=== PATIENT | male | born 1945 | race Caucasian/White ===

== ENCOUNTER → 2017-06-23 | Outpatient (CLI) | payer OTHER ==
[~2017-06-23] MED LIST: ACET-1138 PO; ASPEC81 PO; CLB200 PO; FERR1TAB13 PO; HYDR25TA5 PO; OXYSR10 PO; RXC5 PO; TIMO0.2528 OPB; TRAV0.00 OPR
--- NOTE | 2017-06-23 13:37 | DIAGNOSTIC IMAGING REPORT ---
ART DOP LOWER EXT BILAT CLINICAL HISTORY: DIMINISHED PULSES LE BILATERAL COMPARISON STUDY: No previous studies for comparison. FINDINGS: Brachial arm systolic pressures are 133 mmHg on the right and 136 mmHg the left. Neither posterior tibial artery was compressible. The right dorsalis pedis artery was noncompressible. The left dorsalis pedis systolic pressure was 152 mmHg. This yields a left ankle-brachial index of 1.1 Bilaterally, there is triphasic flow in the common femoral superficial femoral popliteal anterior tibial posterior tibial and peroneal arteries. No high velocity jets were visualized. IMPRESSION: No evidence of lower extremity arterial stenosis. Electronically signed by: Tank Callaway M.D. 06/23/2017 1:36 PM Dictated Date/Time: 06/23/2017 1:34 PM
== END | disposition home or self-care (01) ==
LOC: C.ULTR 11:12
PROVIDERS: ATTEND Orthopaedic Surgery Sports Medicine
DX: R09.89 Other specified symptoms and signs involving the circulatory and respiratory systems (principal)

== ENCOUNTER 2018-08-10 09:01 | Inpatient (IN) ==
--- NOTE | 2018-08-01 10:02 | Anesthesiology Consultation ---
Date of Service August 01, 2018 Assessment & Plan (1) Encounter for pre-operative examination: - PCP= 07/18/18= "medically optimized for surgery at this time." Labs/CXR reviewed. - Patient goes by "Delon" Chart Review Chart Review: Acceptable Risk for Surgery and Patient seen in Pre Admission Testing Teaching & Discussion Pre-Anesthesia Teaching/Discussion Notes: Instructed NPO after midnight before surgery,except medications with 15 cc of water. Medication instructions provided according to the PAT guidelines. History Surgery Operation Date: 08/10/18 07:15 Proposed Procedures p Left Knee Poly Exchange - Warren Baltazar MD Height/Weight Height: 6 ft 1 in Weight: 95 kg Allergies Allergy/AdvReac Type Severity Reaction Status Date / Time No Known Allergies Allergy Unknown Verified 07/24/18 12:06 Medications Home Medications Medication Instructions Recorded Confirmed Last Taken aspirin [Aspir-81] 81 mg PO DAILY 07/24/18 07/24/18 07/24/18 ferrous sulfate [iron] 325 mg PO DAILY 07/24/18 07/24/18 Unknown naproxen sodium [Aleve] 1 tab PO UD PRN 07/24/18 07/24/18 Unknown timolol 1 drp OPHTHALMIC (EYE) DAILY 07/24/18 07/24/18 Unknown travoprost [Travatan Z] 1 drp OPHTHALMIC (EYE) DAILY 07/24/18 07/24/18 Unknown triamterene-hydrochlorothiazid 1 tab PO DAILY 08/01/18 08/01/18 Unknown Past Medical History Medical History Asthma NO INHALER/RECENT ISSUES Emphysema lung EMPHYSEMATOUS CHANGE PER CXR Glaucoma Spinal stenosis Past Family History Family History Other Family history of cancer in father Past Surgical History Surgical History History of back surgery LUMBAR History of total left knee replacement + SUBSEQUENT REVISIONS Past Anesthesia History No Hx of Anesthesia Complications and No Family Hx of Anesthesia Complications History of PONV No Motion Sickness Screening History of Motion Sickness: No Social History Smoking Status: Former smoker Do You Dip or Chew Tobacco: Yes (OFF & ON - NPO ADVISED) Smoking End Date: QUIT 1980 Hx Alcohol Use: No Hx Substance Use: No substance use type: does not use Exercise / Class Metabolic Activity II 4-5 Yardwork/Stairs/Walk up hill Review of Systems Patient denies chest pain, shortness of breath, dyspnea on exertion, cough, wheezing, palpitations. Physical Exam Vital Signs VITALS BP 156/78 P 60 TEMP 97.6 SP02 96%RA RESP 18 PHYSICAL Full neck and c-spine range of motion. Full TMJ range of motion. TMD 3 finger breaths Mallampati Score 2 Dentition: lower partial Lungs: clear throughout to auscultation Cardiac: regular rate and rhythm, no murmurs noted Spine: normal Carotid arteries: negative bruit Extremities: no edema Testing Electrocardiogram Date: 07/18/18 SB with first degree AVB at 56bpm. Possible LAE. Chest X-Ray Date: 07/18/18 Findings: + NAD Tortuous and ectatic thoracic aorta. Mild emphysematous change. Laboratory Results Blood Type O Positive 08/01/18 10:26 Antibody Screen NEGATIVE 08/01/18 10:26 PT 10.4 Seconds (9.0-12.0) 08/01/18 10:26 INR 1.0 (0.9-1.1) 08/01/18 10:26 APTT 28.2 Seconds (21.0-31.0) 08/01/18 10:26 Hemoglobin A1c 5.9 % (4.5-5.6) H 08/01/18 10:26 Urine Color Yellow 08/01/18 Unknown Urine Appearance Clear (Clear) 08/01/18 Unknown Urine pH 7.0 (4.5-7.5) 08/01/18 Unknown Ur Specific [place] 1.013 (1.000-1.030) 08/01/18 Unknown Urine Protein Negative (Negative) 08/01/18 Unknown Urine Glucose (UA) Negative (Negative) 08/01/18 Unknown Urine Ketones Negative (Negative) 08/01/18 Unknown Urine Nitrite Negative (Negative) 08/01/18 Unknown Ur Leukocyte Esterase Negative (Negative) 08/01/18 Unknown 07/18/18 WBC 7.43 H/H 15.7/45.9 PLATELETS 308 SODIUM 136 POTASSIUM 4.2 CHLORIDE 100 CO2 35 BUN 17 CREATININE 1.04 GLUCOSE 105
--- NOTE | 2018-08-01 10:24 | PAT Medication Instructions ---
Medication Instructions Date of Service August 01, 2018 Home Medications aspirin [Aspir-81] 81 mg PO DAILY ferrous sulfate [iron] 325 mg PO DAILY naproxen sodium [Aleve] 1 tab PO UD PRN timolol 1 drp OPHTHALMIC (EYE) DAILY travoprost [Travatan Z] 1 drp OPHTHALMIC (EYE) DAILY triamterene 25 mg PO QAM ASK your surgeon for instructions naproxen sodium [Aleve] 1 tab PO UD PRN DO NOT take the morning of surgery ferrous sulfate [iron] 325 mg PO DAILY triamterene 25 mg PO QAM Take morning of surgery With a small sip of water, OTHERWISE NOTHING TO EAT OR DRINK AFTER MIDNIGHT: aspirin [Aspir-81] 81 mg PO DAILY timolol 1 drp OPHTHALMIC (EYE) DAILY travoprost [Travatan Z] 1 drp OPHTHALMIC (EYE) DAILY Other Notes If you have any questions please call us at [phone] or [phone] or [phone] or [phone]
[2018-08-01 12:18] LABS: Appearance Urine Clear (Clear); Bilirubin Urine Negative (Negative); Blood Urine Negative (Negative); Color Urine Yellow; Glucose Urine UA Negative (Negative); Ketones Urine Negative (Negative); Leukocyte Esterase Urine Negative (Negative); Nitrite Urine Negative (Negative); Protein Urine Negative (Negative); Specific Gravity Urine 1.013 (1.000-1.030); Urobilinogen Urine Negative (Negative)
[2018-08-01 12:31] LABS: Partial Thromboplastin Time 28.2 Seconds (21.0-31.0); Prothrombin Time 10.4 Seconds (9.0-12.0)
[2018-08-01 12:41] LABS: Estimated Average Glucose 123 mg/dl; Hemoglobin A1C 5.9 % (4.5-5.6)
--- NOTE | 2018-08-09 18:50 | History and Physical Report ---
DATE OF ADMISSION: 08/10/2018 CHIEF COMPLAINT: Chronic left knee pain. HISTORY OF PRESENT ILLNESS: This is a 72-year-old male patient of Dr. Baltazar'reece complaining of chronic left knee pain and instability. The patient is status post a total knee arthroplasty in 2002. He sustained a polyethylene fracture and had a revision in June of 2018. Again, he had recurrent pain and instability recently. Again, he has been diagnosed with a poly fracture of the total knee replacement and after bracing and conservative treatment he again wishes to proceed with a left total knee arthroplasty, poly exchange. Preoperative testing indicated no presence of infection. PAST MEDICAL HISTORY: The patient is a healthy 72-year-old male with no heart problems, lung problems, diabetes or cancer history. SOCIAL HISTORY: Nonsmoker, nondrinker. PAST SURGICAL HISTORY: Left knee x2. FAMILY HISTORY: Noncontributory. REVIEW OF SYSTEMS: Chronic left knee pain and instability. Otherwise denies any shortness of breath, chest pain, nausea, vomiting or any other joint complaints. MEDICATIONS: Aspirin 81 mg daily, timolol eyedrops 0.25% to affected eye 1 drop daily, Aleve 220 mg as needed, Travatan Z 0.004% eyedrops to affected eye every day, Hydrochlorothiazide 25 mg daily. ALLERGIES: No known drug allergies. PHYSICAL EXAMINATION: GENERAL: Well-developed, well-nourished 72-year-old male in no acute distress. He is alert and oriented x3 and pleasant. HEENT: Normocephalic, atraumatic. Extraocular muscles are intact. Pupils equal and reactive to light. HEART: Regular rate and rhythm. No murmurs appreciated. LUNGS: Clear. ABDOMEN: Soft and nontender, bowel sounds present. EXTREMITIES: Left knee reveals a neutral alignment. 0-100 degrees of range of motion with pain, 4/5 strength with pain. He is unstable with varus and valgus stressing. NEUROLOGIC: Neurovascularly he is intact in his left lower extremity. He does have old incision scars noted. DIAGNOSES: Left knee total knee arthroplasty, recurrent poly fracture. Otherwise, a healthy 72-year-old male. PLAN: The patient was advised of his diagnosis. Indications, risks, benefits, postop course have all been reviewed. The patient wished to proceed with a left total knee replacement revision poly exchange. Necessary consent forms, preoperative testing clearances will be obtained.
[~2018-08-10 09:01] MED LIST changes: -ACET-1138 PO; +ACETAMINOPHEN 500 MG TAB PO SCH; -ASPEC81 PO; +BUPIVACAINE 0.5 % 5 MG/1 ML PF 10ML VIAL ONE; +CEFAZOLIN 2000MG 2,000 MG/15 ML SYR IV SCH; -CLB200 PO; +CeleBREX 200 MG CAP PO SCH; +FAMOTIDINE 20 MG TAB PO SCH; -FERR1TAB13 PO; +GABAPENTIN 300 MG PO SCH; -HYDR25TA5 PO; +LR 500ML BOLUS, THEN 15ML/HR IV SCH; +METOCLOPRAMIDE HCL 10 MG TABLET PO SCH; -OXYSR10 PO; +ROPIVACAINE 0.5% 5 MG/ML 30 ML VIAL ONE; +ROPIVACAINE 0.5% HCL/PF 150 MG, BUPIVACAINE 0.5% MPF 30 ML, EPINEPHrine 30MG/30ML (OR U... INFIL SCH; -RXC5 PO; -TIMO0.2528 OPB; +TRANEXAMIC ACID 1,000 MG **IV Intra-op IV SCH; +TRANEXAMIC ACID 1,000 MG **IV Pre-op IV SCH; -TRAV0.00 OPR; +VANCOMYCIN HCL 1,500 MG in SODIUM CHLORIDE 0.9% 500 ML IV SCH; +dexAMETHasone 4 MG TAB PO SCH
[2018-08-10] MEDS ORDERED: fentaNYL citrate 100 MCG/2 ML VIAL ONE ×2 (11:42→14:44)
[2018-08-10] MEDS ORDERED: MIDAZOLAM HCL 1 MG/ML 2ML VIAL ONE (11:42)
[2018-08-10] MEDS ORDERED: ORTHO JOINT ANESTHETIC ONE (12:27)
[2018-08-10] MEDS ORDERED: BACITRACIN INJ 50,000 UNIT VIAL ONE (12:28)
[2018-08-10] MEDS ORDERED: POVIDONE-IODINE OP SOLN 30 ML BTL ONE (12:28)
--- NOTE | 2018-08-10 12:30 | History & Physical Bridge Note ---
Date of Service August 10, 2018 History & Physical Bridge Note I have examined the patient, reviewed the History & Physical and in the interval since the performance of the History & Physical I have noted the following changes of clinical significance: no changes noted
[2018-08-10] MEDS ORDERED: ePHEDrine sulfate 50 MG/ML AMP IV PRN (12:39)
[2018-08-10] MEDS ORDERED: ONDANSETRON INJ 2 MG/ML 2 ML VIAL IV PRN ×2 (12:39→17:13)
[2018-08-10] MEDS ORDERED: fentaNYL citrate 100 MCG/2 ML VIAL IV PRN (12:39)
[2018-08-10] MEDS ORDERED: HYDROmorphone INJ 1 MG/ML SYRINGE IV PRN (12:39)
[2018-08-10] MEDS ORDERED: ATROPINE SULFATE 0.1 MG/ML 10ML SYR IV PRN (12:39)
[2018-08-10] MEDS ORDERED: PROPOFOL IV EMULSION 10 MG/ML 20 ML VIAL IV ONE (12:49)
[2018-08-10] MEDS ORDERED: ePHEDrine sulfate 50 MG/ML SYR ONE (14:11)
[2018-08-10] MEDS ORDERED: BACITRACIN INJ 50,000 UNIT VIAL IR ONE (14:22)
[2018-08-10] MEDS ORDERED: LIDOCAINE HCL 2% 2 ML VIAL/AMP(20MG/ML) INFIL ONE (14:45)
--- NOTE | 2018-08-10 15:12 | Post Operative Brief Note ---
Immediate Post Op Note v1 Date of Surgery August 10, 2018 Pre & Post Diagnosis Operation Date: 08/10/18 11:35 Pre-Op Diagnosis: Left Knee Polyethylene Fracture tibial component with instability left total knee replacement Post-Op Diagnosis: Left Knee Polyethylene fracture tibial component and Wear of Patella polyethylene component with superficial delamination and Hemarthrosis of the knee Procedure Operation Date: 08/10/18 11:35 Actual Procedures p Left Knee revision of tibial polyethylene component and revision patella co mponent left knee replacement with synovectomy and irrigation of hemarthrosis- Warren Baltazar MD Surgeon Warren Baltazar MD Human Resources Compensation Analyst Skinny PERLA Estimated Blood Loss 10 Findings Consistent with Post-Op Diagnosis Specimens Explanted polyethylene components Drains Hemovac Drain (10 fr dual) Anesthesia Type General Regional Complications none Disposition Accompanied Patient To Recovery: No Disposition: Recovery Room Overlapping Procedure I was immediately available: during the entire case.
--- NOTE | 2018-08-10 15:46 | XRay Report ---
XR knee LT 2V routine HISTORY: 72 years-old Male Surgical Post Op left knee total joint arthroplasty COMPARISON: Left knee radiographs 04/08/2016 TECHNIQUE: 2 views of the left knee FINDINGS: Left knee total joint arthroplasty and patellar resurfacing with satisfactory alignment. No acute fra cture or retained foreign body. Anterior midline skin bharathi are noted with expected postsurgical so ft tissue swelling and deep tissue air. Surgical drainage catheter noted. Peripheral arterial calcifi cations noted. IMPRESSION: Left knee total joint arthroplasty and patella resurfacing with satisfactory alignment. The above report was generated using voice recognition software. It may contain grammatical, syntax o r spelling errors. Electronically signed by: Carlos Knutson M.D. 08/10/2018 3:44 PM
--- NOTE | 2018-08-10 16:00 | Anesthesiology Progress Note ---
Date of Service August 10, 2018 Anesthesia Post Procedure Vital Signs Vital Signs: Temp Pulse Pulse Resp BP Pulse Ox 08/10/18 15:54 64 17 135/88 94 08/10/18 15:45 75 14 132/82 98 08/10/18 15:35 71 13 129/81 98 08/10/18 15:25 57 L 10 L 129/72 98 08/10/18 15:16 36.2 C L 60 10 L 119/76 96 08/10/18 09:39 36.9 C 52 L 20 168/97 H 96 Notes Mental Status: alert / awake / arousable and participated in evaluation Patient Amnestic to Procedure: Yes Nausea / Vomiting: adequately controlled Pain: adequately controlled Airway Patency, RR, SpO2: stable & adequate BP & HR: stable & adequate Hydration State: stable & adequate Anesthetic Complications: no major complications apparent and Pt Satisfied with anesthetic care Notes: Block is functioning well.
[2018-08-10] MEDS ORDERED: HYDROmorphone INJ 0.5 MG/0.5 ML SYR IV PRN (17:13)
[2018-08-10] MEDS ORDERED: OXYCODONE HCL IR 5 MG TAB (IMMEDIATE RELEASE) PO PRN (17:13)
[2018-08-10] MEDS ORDERED: SODIUM CHLORIDE 0.9% 1000ML 1,000 ML IV SCH (17:13)
[2018-08-10] MEDS ORDERED: TRAMADOL HCL 50 MG TABLET PO PRN (17:13)
[2018-08-10] MEDS ORDERED: METOCLOPRAMIDE HCL INJ 5 MG/ML 2 ML VIAL IV PRN (17:13)
[2018-08-10] MEDS ORDERED: MAGNESIUM HYDROXIDE SUSP 30 ML UDC PO PRN (17:13)
[2018-08-10] MEDS ORDERED: NALOXONE HCL 0.4 MG/1 ML VIAL/CARP IV PRN (17:13)
[2018-08-10] MEDS ORDERED: VANCOMYCIN CONSULT ACTIVE PRN (17:13)
[2018-08-10] MEDS ORDERED: BISACODYL 10 MG SUPP PR PRN (17:13)
--- NOTE | 2018-08-10 17:15 | Operative Report ---
Post Operative Report Pre & Post Diagnosis Operation Date: 08/10/18 11:35 Pre-Op Diagnosis: Left Knee Polyethylene Fracture tibial component with instability of the knee Post-Op Diagnosis: Same with polyethylene wear and delamination of patella component and hemarthrosis Procedure Operation Date: 08/10/18 11:35 Actual Procedures Left Knee revision of tibial polyethylene component, revision of patellar component, electrocautery synovectomy.- Warren Baltazar MD Surgeon Warren Balatzar MD Director Integrated Skinny PERLA Estimated Blood Loss 10 Findings Consistent with Post-Op Diagnosis Specimens Culture, explanted implants Drains 2 Hemovac Anesthesia Type General Regional Complications none Disposition Accompanied Patient To Recovery: No Disposition: Recovery Room Indications 72-year-old male with total knee replacement left knee for many years did have a complication with fracture polyethylene post that required revision of the polyethylene component. Patient did well until recently when he developed mechanical symptoms and instability and pain which eventually resolved but still had instability of his knee. Clinical exam is consistent with a fracture polyethylene post of posterior stabilized knee replacement with low-grade synovitis and no signs of infection with negative workup on blood tests. Description of Procedure Patient was placed under general anesthetic. Patient had regional block preop. Patient was supine on the operating table. A pneumatic tourniquet was placed by his left upper thigh. His left knee had a small effusion full range of motion but had posterior instability with posterior stress on the knee consistent with a fracture polyethylene post of the tibial polyethylene component. He had some varus valgus laxity. He had no hyperextension. Left lower extremity was sterilely prepped and draped with ChloraPrep in usual sterile fashion. Leg was elevated exsanguinated with Esmarch bandage and pneumatic tourniquet raised to 325 mmHg. An anterior incision was made through his previous scar. Subcutaneous flaps were elevated. A paramedian arthrotomy was performed extending up to the mid third of the quadriceps tendon and down to the medial tibial tubercle. Patient had a hemarthrosis no pus no signs of infection. We did get a culture. The hemarthrosis was irrigated out and the knee flexed and the polyethylene post fragment was clearly fractured off and removed easily. The remainder of the polyethylene had no particular abnormal wear of the tibial component. The patella however had significant polyethylene wear and some delamination. The patella however was not loose at all. Patient has some generalized typical scar tissue but no signs of any chronic infection clin ically. I performed electrocautery synovectomy removing all the scarred synovial tissue. Some heterotopic bone anterior to the tibial component was resected. The knee was flexed and the screwdriver was used to loosen the screw of the tibial component and then the tibial component was removed with a curved osteotome. This gave us more room to address the patella. A sub-periosteal lateral release performed with electrocautery helped exposed patella further. The patella was removed using an oscillating saw to resect the undersurface of the patella. There is still good amount of patella bone with 15 mm noted after the resection. The patella was then prepared for revision patella component and we used the [employer] symmetrical dome patella. Patient had a large patella and we use the 41 mm patella and lined up the holes with the previous holes in the prior patella so we able to drill out the plastic and cement from the prior patella that was placed. There is some minor areas of osteolysis under the patella that were curetted. I placed the trial component in place and had a good fit. We placed a trial 9 x 10 foundation Encore posterior stabilized polyethylene trial and did a trial range of motion of the knee and the patella tracked centrally and the knee was completely stable had full range of motion. The trial was removed and we re-irrigated the knee out with antibiotic solution with bacitracin. The final Encore foundation 9 mm posterior stabilized polyethylene component was placed in position and the tibia impacted with the impactor and then the screw was tightened. Fixation was stable. Then the patella was cemented which was the [employer]hew 41 mm symmetrical patella. While the cement was curing least did a Betadine soak to the knee joint and we also injected orthomix for postop pain relief. When the cement cured the knee was copiously irrigated with antibiotic solution with bacitracin. 2 drains are bilaterally connected to a Hemovac. The medial retinaculum and quadriceps tendon were repaired with interrupted [id number] #1 Vicryl sutures. The knee was taken through full range of motion repair secure. Patella tracked centrally. The knee was stable. The subcu tissues were closed with 2-0 Vicryl and skin was closed with bharathi and a Silverlon dressing was applied. Patient had minimal blood loss and tolerated procedure well. Skinny PERLA has been persistently function as for assistance with that procedure. Assisted in knee positioning soft tissue retraction and assisted in the final closure and postoperative care of the patient. I attest to the content of the Intraoperative Record and any orders documented therein. Any exceptions are noted below.
--- NOTE | 2018-08-10 19:32 | Internal Medicine Consult Note ---
Date of Consultation August 10, 2018 Assessment & Plan (1) Hypertension: Patient typically takes Dyazide for blood pressure control. His blood pressure is in good control currently we will continue Dyazide therapy unless his blood pressure is lower his lab work shows sign of renal distress (2) Glaucoma: He is maintained on his home eyedrops for his glaucoma (3) Loose total knee arthroplasty: Knee joint is been replaced by orthopedics aspirin twice daily has been chosen as DVT prevention postoperatively History of Present Illness Attending Physician: Warren Baltazar MD History of Present Illness Patient is a very healthy 72-year-old male who only takes Dyazide for blood pre ssure control who underwent his fourth knee replacement surgery today. He is seen postoperatively in the company of his family is doing quite well he has no complaints or problems other than typical postoperative discomfort. Allergies Allergy/AdvReac Type Severity Reaction Status Date / Time No Known Allergies Allergy Unknown Verified 08/10/18 09:32 Home Medications Home Medications Medication Instructions Recorded Confirmed Type aspirin [Aspir-81] 81 mg PO DAILY 07/24/18 08/10/18 History ferrous sulfate [iron] 325 mg PO DAILY 07/24/18 08/10/18 History naproxen sodium [Aleve] 1 tab PO UD PRN 07/24/18 08/10/18 History timolol 1 drp OPHTHALMIC (EYE) DAILY 07/24/18 08/10/18 History travoprost [Travatan Z] 1 drp OPHTHALMIC (EYE) DAILY 07/24/18 08/10/18 History triamterene-hydrochlorothiazid 1 tab PO DAILY 08/01/18 08/10/18 History Patient History Medical History Asthma NO INHALER/RECENT ISSUES Glaucoma Hypertension Spinal stenosis Emphysema lung EMPHYSEMATOUS CHANGE PER CXR Surgical History History of back surgery LUMBAR History of total left knee replacement + SUBSEQUENT REVISIONS Family History Other Family history of cancer in father Social History Preferred Language: Swazi Communication Ability: Effective Mailing Jogger Required: No Beliefs That Will Affect Care: Lutheran Current Living Situation: Spouse Other Information That Helps Us Care for You: No Feels Safe at Home: Yes Smoking Status: Former smoker Hx Alcohol Use: No Hx Substance Use: No Review of Systems ROS: well nourished well developed. No double vision blurry vision No problems with speech or swallowing No palpitations, chest pain or pressure No Wheezing or breathing issues No abdominal pain nausea vomiting diarrhea changes in appetite or weight No burning urine urine frequency or changes in color No skin rashes or oral lesions No unusual bruising or bleeding No focused back pain or numbness or loss of strength No changes in memory or confusion Physical Exam Vital Signs (Past 24 Hours): Last Vital Signs Temp 36.3 C L 08/10/18 17:10 Pulse 83 08/10/18 19:07 Resp 17 08/10/18 19:07 BP 143/73 H 08/10/18 19:07 Pulse Ox 95 08/10/18 19:07 the patient appeared well nourished and normally developed. Vital signs as documented. Head exam is unremarkable. normocephalic, atraumatic Neck is without jugular venous distension, thyromegaly, or lymphademopathy Lungs are clear to auscultation and percussion. Cardiac exam reveals Rhythm is regular. First and second heart sounds normal. Left leg is a bandage in place distally he has good capillary refill sensation and pulses to the knee replacement he is Hemovac drains in place also Neurologic exam is A&Ox3, no focal deficits, strength is equal bilateral to upper extremities Psychologically seems neither anxious or depressed
[2018-08-10] MEDS ORDERED: PNEUMOCOCCAL POLYSACCHARIDES 25 MCG/0.5 ML VIAL/SYR IM ONE (21:00)
[2018-08-10] MEDS ORDERED: PNEUMOCOCCAL ADMINISTRATION CHARGE ONE (21:00)
[2018-08-10] MEDS: SENNA 8.6 MG TAB PO SCH (21:08)
[2018-08-10] MEDS: DOCUSATE SODIUM 100 MG CAP PO SCH (21:08)
[2018-08-10] MEDS: CeleBREX 200 MG CAP PO SCH (21:08)
[2018-08-10] MEDS: ASPIRIN 81 MG ECTAB PO SCH (21:08)
[2018-08-10] MEDS: ACETAMINOPHEN 500 MG TAB PO SCH (21:08)
[2018-08-10] MEDS ORDERED: VANCOMYCIN HCL 1,500 MG in SODIUM CHLORIDE 0.9% 500 ML IV SCH (22:00)
[2018-08-11] MEDS: ACETAMINOPHEN 500 MG TAB PO SCH ×3 (05:22→22:39)
[2018-08-11 06:24] LABS: Hematocrit (blood only) 37.4 % (42-52); Hemoglobin 12.5 g/dL (14.0-18.0); Mean Corpuscular Hgb Conc 33.4 g/dL (32-36); Mean Corpuscular Volume 92.8 fL (80-100); Mean Platelet Volume 9.3 fL (7.4-10.4); Platelet Count 257 K/uL (130-400); RDW Coefficient of Variation 12.4 % (11.5-14.5); RDW Standard Deviation 42.2 fL (36.4-46.3); Red Blood Count 4.03 M/uL (4.7-6.1); White Blood Count 14.53 K/uL (4.8-10.8)
[2018-08-11 06:49] LABS: BUN Creatinine Ratio 13.5 (10-20); Creatinine Clr Calc Pharmacy 59.5 ml/min; Est GFR (African American) 65.8; Est GFR (Non-African American) 56.8; Potassium 4.2 mmol/L (3.5-5.1)
--- NOTE | 2018-08-11 07:44 | Anesthesiology Progress Note ---
Date of Service August 11, 2018 Anesthesia Post Procedure Vital Signs Vital Signs: Temp Pulse Pulse Pulse Pulse Resp BP 08/11/18 03:49 36.9 C 72 18 114/59 L 08/10/18 23:27 36.6 C 87 17 133/65 08/10/18 20:10 36.5 C 86 18 135/74 08/10/18 19:07 83 17 143/73 H 08/10/18 18:27 83 17 129/67 08/10/18 17:48 79 17 122/72 08/10/18 17:10 36.3 C L 79 18 139/79 08/10/18 16:54 36.6 C 71 21 126/85 08/10/18 16:40 36.6 C 61 15 120/88 08/10/18 16:25 36.6 C 64 17 120/76 08/10/18 16:15 36.6 C 55 L 15 120/76 08/10/18 16:05 36.6 C 63 19 131/78 08/10/18 15:55 64 17 135/88 08/10/18 15:45 75 14 132/82 08/10/18 15:35 71 13 129/81 08/10/18 15:25 57 L 10 L 129/72 08/10/18 15:16 36.2 C L 60 10 L 119/76 08/10/18 09:39 36.9 C 52 L 20 168/97 H Pulse Ox 08/11/18 03:49 95 08/10/18 23:27 95 08/10/18 20:10 94 08/10/18 19:07 95 08/10/18 18:27 96 08/10/18 17:48 95 08/10/18 17:10 94 08/10/18 16:54 94 08/10/18 16:40 93 08/10/18 16:25 93 08/10/18 16:15 93 08/10/18 16:05 93 08/10/18 15:55 94 08/10/18 15:45 98 08/10/18 15:35 98 08/10/18 15:25 98 08/10/18 15:16 96 08/10/18 09:39 96 Notes Mental Status: alert / awake / arousable and participated in evaluation Patient Amnestic to Procedure: Yes Nausea / Vomiting: adequately controlled Pain: adequately controlled Airway Patency, RR, SpO2: stable & adequate BP & HR: stable & adequate Hydration State: stable & adequate Neuraxial Anesthesia: was administered and sensory block resolved Anesthetic Complications: no major complications apparent and Pt Satisfied with anesthetic care
--- NOTE | 2018-08-11 08:39 | Orthopedic Progress Note ---
Date of Service August 11, 2018 Assessment & Plan (1) Loose total knee arthroplasty: POD #1, Left TKA Aseptic revision poly and patella components, irrigation and synovectomy. Pt/ OT DVT proph- ASA D/C planning- Home w HEP Sat if cxs negative. As per medicine Intra op gram stain negative, cxs pending, likely negative since pre labs all aseptic. Subjective POD #1, doing well, denies sob, cp, n/v, pain controlled well. Physical Exam Vital Signs (Past 24 Hours): Last Vital Signs Temp 36.6 C 08/11/18 07:10 Pulse 72 08/11/18 07:10 Resp 16 08/11/18 07:10 BP 143/73 H 08/11/18 07:10 Pulse Ox 96 08/11/18 07:10 Physical Exam: Left knee dressings c/d/i, no drainage, toes and ankle mobile, no calf tenderness, A&Ox3.
[2018-08-11] MEDS ORDERED: VANCOMYCIN CONSULT ACTIVE PRN (08:44)
[2018-08-11] MEDS: MULTIVITAMIN TAB PO SCH (08:51)
[2018-08-11] MEDS: TRIAMTERENE/HCTZ 37.5/25MG TAB PO SCH (08:51)
[2018-08-11] MEDS: ASPIRIN 81 MG ECTAB PO SCH ×2 (08:51→20:25)
[2018-08-11] MEDS: FERROUS SULFATE 325 MG TAB PO SCH (08:51)
[2018-08-11] MEDS: DOCUSATE SODIUM 100 MG CAP PO SCH ×2 (08:51→20:24)
[2018-08-11] MEDS: CeleBREX 200 MG CAP PO SCH ×2 (08:51→20:25)
[2018-08-11] MEDS: TRAVOPROST Z 0.004% OPH SOLN 2.5 ML BTL OP SCH (08:52)
[2018-08-11] MEDS: TIMOLOL MALEATE 0.25% OP SOLN 5 ML BTL OP SCH (08:52)
[2018-08-11] MEDS: VANCOMYCIN HCL 1,500 MG in SODIUM CHLORIDE 0.9% 500 ML IV SCH ×2 (09:46→22:39)
--- NOTE | 2018-08-11 11:07 | Pharmacy Report ---
Pharmacy Abx Initial Consult - Date of Service August 11, 2018 - Pharmacy Dosing Scope Date of Consult: 08/11/18 Consultation requested by: Dr. Fierro Pharmacy is consulted to initiate Vancomycin IV dosing therapy, order appropriate labs and adjust drug dose/frequency. - Subjective The patient is a 72 year old M admitted on 08/10/18 15:22. - Objective Height: 6 ft 1 in Weight: 92.941 kg Vital Signs (Past 12hrs): Vital Signs Temp Pulse Resp BP Pulse Ox 08/11/18 07:10 36.6 C 72 16 143/73 H 96 08/11/18 03:49 36.9 C 72 18 114/59 L 95 08/10/18 23:27 36.6 C 87 17 133/65 95 Lab Results (24hrs): Laboratory Tests (24 Hours) 08/11/18 08/11/18 06:09 06:09 WBC 14.53 H Creatinine 1.25 Est Cr Clr Drug Dosing 59.5 Micro Results: 08/10/18 13:15 Gram Stain - Final Knee,Left Aerobic and Anaerobic Culture - Pending - Risk Factors for Resistance * None identified at this time - Assessment & Plan Assessment 72 year old M admitted with loose L TKA, s/p L TKA aseptic revision. He was given Vancomycin 1500mg (~16mg/kg IV) x 2 doses pre- and post-op. Since patient has already gotten 2 doses and last dose was ~12 hours prior to consult received, choose NOT to give loading dose at this time. Instead, will initiate a more aggressive maintenance regimen with dosing interval closer to estimated half life. Plan Vancomycin IV * Estimated PK Parameters: Ernie 0.054 hr-1, t1/2 12.8 hr * Maintenance dose: 1500 mg IV (~16 mg/kg) every 12 hours * Goal trough level for possible knee infection : 15 to 20 mcg/mL * Trough/Random level ordered for 08/12/18 @ 0930 (only prior to 3rd dose and therefore not reflective of steady state, but would like to assess dosing regimen earlier due to unusual dosing regimen as patient did not receive loading dose) Pharmacy will continue to follow and will adjust dose/frequency as necessary. Thank you.
[2018-08-11] MEDS: SENNA 8.6 MG TAB PO SCH (20:25)
[2018-08-12] MEDS: ACETAMINOPHEN 500 MG TAB PO SCH (06:15)
[2018-08-12] MEDS: CeleBREX 200 MG CAP PO SCH (07:19)
[2018-08-12] MEDS: FERROUS SULFATE 325 MG TAB PO SCH (07:19)
[2018-08-12] MEDS: DOCUSATE SODIUM 100 MG CAP PO SCH (07:19)
[2018-08-12] MEDS: ASPIRIN 81 MG ECTAB PO SCH (07:19)
[2018-08-12] MEDS: MULTIVITAMIN TAB PO SCH (07:19)
[2018-08-12] MEDS: TRIAMTERENE/HCTZ 37.5/25MG TAB PO SCH (07:19)
[2018-08-12] MEDS: TRAVOPROST Z 0.004% OPH SOLN 2.5 ML BTL OP SCH (07:20)
[2018-08-12] MEDS: TIMOLOL MALEATE 0.25% OP SOLN 5 ML BTL OP SCH (07:20)
--- NOTE | 2018-08-12 09:12 | Orthopedic Progress Note ---
Date of Service August 12, 2018 Assessment & Plan (1) Loose total knee arthroplasty: 72 yo male POD #2 s/p left TKA poly and patella button changes 1. Med management 2. DVT prophylaxis- ASA, SCDs 3. PT/OT 4. D/C planning- home w/out services Subjective Pt resting in bed, pain controlled, denies complaints Physical Exam Vital Signs (Past 24 Hours): Last Vital Signs Temp 36.5 C 08/12/18 06:31 Pulse 57 L 08/12/18 06:31 Resp 16 08/12/18 06:31 BP 156/83 H 08/12/18 06:31 Pulse Ox 97 08/12/18 06:31 Physical Exam: Toes mobile, N/V/I, Silverlon dressing in place
[2018-08-12 09:28] LABS: Hematocrit (blood only) 37.8 % (42-52); Hemoglobin 12.9 g/dL (14.0-18.0); Mean Corpuscular Hgb Conc 34.1 g/dL (32-36); Mean Corpuscular Volume 93.6 fL (80-100); Mean Platelet Volume 9.3 fL (7.4-10.4); Platelet Count 260 K/uL (130-400); RDW Coefficient of Variation 12.6 % (11.5-14.5); Red Blood Count 4.04 M/uL (4.7-6.1); White Blood Count 12.51 K/uL (4.8-10.8)
[2018-08-12] MEDS ORDERED: VANCOMYCIN TROUGH ONE (09:30)
[2018-08-12 09:52] LABS: BUN Creatinine Ratio 13.7 (10-20); Calcium 8.5 mg/dl (8.5-10.1); Creatinine Clr Calc Pharmacy 64.7 ml/min; Est GFR (African American) 72.8; Est GFR (Non-African American) 62.8; Potassium 3.8 mmol/L (3.5-5.1)
[2018-08-12] MEDS: VANCOMYCIN HCL 1,500 MG in SODIUM CHLORIDE 0.9% 500 ML IV SCH (10:38)
--- NOTE | 2018-08-26 21:19 | Discharge Summary ---
HISTORY OF PRESENT ILLNESS: This is a 72-year-old male patient of Dr. Baltazar'reece complaining of chronic left knee pain and instability. The patient is status post total knee arthroplasty in 2002. He sustained a polyethylene fracture and had a revision in 06/2018. Again, he had recurrent pain and instability and was diagnosed with another polyethylene fracture and failed conservative treatment including bracing. The patient wishes to proceed with a left total knee arthroplasty, poly exchange. Preoperative testing indicated no presence of infection. PAST MEDICAL HISTORY: The patient is a healthy 72-year-old male with no heart problems, lung problems, diabetes or cancer history. POSTOPERATIVE COURSE: The patient underwent a left knee total knee arthroplasty, revision patella and polyethylene components with a synovectomy. Postoperatively, he was followed closely with medical consultation, DVT prophylaxis in the form of aspirin, physical therapy and pain control. The patient did very well postoperatively with no issues and was discharged home on postoperative day #2. PHYSICAL EXAMINATION: On discharge, left knee Silverlon dressing was clean, dry and intact. There was no redness or drainage, no erythema. There was no calf tenderness. Negative Homans sign. Neurologically and neurovascularly, he is intact in his left lower extremity. Toes and ankle are mobile. DIAGNOSES: Status post left total knee arthroplasty revision polyethylene and patellar components with synovectomy. Otherwise, a healthy 72-year-old male. PLAN: The patient was discharged home with home exercise program. He will continue his preadmission medications with the addition of pain medications and the continuation of aspirin for DVT prophylaxis twice daily. The patient will follow up as scheduled as an outpatient.
== END 2018-08-12 14:06 | disposition home or self-care (01) | DRG 468 ==
LOC: ASU 09:01 → 3E 15:22

== ENCOUNTER 2022-11-29 16:16 | Observation (INO) ==
--- NOTE | 2022-11-29 16:23 | ED Triage Note ---
Date of Service November 29, 2022 History of Present Illness This patient was briefly evaluated while in triage. An abbreviated physical exam was performed. This patient is a 77-year-old Male who presents to the ED for evaluation of feeling unwell around 3:30. Knew something wasn't right. Operating vacuum and then became diaphoretic. He looked unwell and feels unwell. After became diaphoretic noted slurred speech. Physical Exam GENERAL: 77 year old male. In no acute distress. SKIN: No lesions or rashes. HEART: Regular rate and rhythm. LUNGS: Clear to auscultation. NEURO: Alert and oriented. No deficits at time of exam. MUSCULOSKELETAL: No deformities to inspection of the extremities. PSYCH: Patient is pleasant and answers all questions appropriately. Initial orders for labs and / or imaging were placed.
--- NOTE | 2022-11-29 16:57 | XRay Report ---
SINGLE VIEW CHEST CLINICAL HISTORY: Exertional diaphoresis. FINDINGS: An AP, portable, upright chest radiograph is compared to study dated 07/18/2018. The cardiom ediastinal silhouette is unremarkable. The lungs and pleural spaces are clear. No pneumothorax is see n. The skeletal structures are osteopenic. The bony thorax is grossly intact. Arthritic changes in th e shoulders. IMPRESSION: No active disease in the chest. ACT 112: Negative or not required by law. Electronically signed by: Oliver Portillo M.D. 11/29/2022 4:56 PM
[2022-11-29] MEDS ORDERED: SODIUM CHLORIDE 0.9% 1000ML 1,000 ML IV ONE ×2 (18:02→20:02)
[2022-11-29 18:11] LABS: Basophils # (auto) 0.03 K/uL (0-0.2); Basophils % (auto) 0.3 %; Eosinophils # (auto) 0.14 K/uL (0-0.50); Eosinophils % (auto) 1.3 %; Hematocrit (blood only) 47.3 % (42.0-52.0); Hemoglobin 16.2 g/dl (14.0-18.0); Immature Granulocytes # (auto) 0.09 K/uL (0.01-0.20); Immature Granulocytes % (auto) 0.9 %; Lymphocytes # (auto) 0.92 K/uL (1.2-3.4); Lymphocytes % (auto) 8.8 %; Mean Corpuscular Hemoglobin 31.9 pg (25.0-34.0); Mean Corpuscular Hgb Conc 34.2 g/dL (32.0-36.0); Mean Corpuscular Volume 93.1 fL (80.0-100.0); Mean Platelet Volume 9.3 fL (9.4-12.4); Monocytes # (auto) 0.84 K/uL (0.11-0.59); Neutrophils # (auto) 8.48 K/uL (1.40-6.50); Neutrophils % (auto) 80.7 %; Platelet Count 277 K/uL (130-400); RDW Coefficient of Variation 12.2 % (11.5-14.5); RDW Standard Deviation 42.1 fL (36.4-46.3); Red Blood Count 5.08 M/uL (4.70-6.10)
--- NOTE | 2022-11-29 18:15 | Emergency Department Note ---
Impression & Plan Near syncope, Heart block AV first degree, Acute Lyme disease ED Provider Note Name: BETZY FLOR Age: 77 Sex: M Arrives Via: Walk-In Informant: Patient, son, [id number] ED Provider: Abdon Morales MD Chief Complaint: Near syncope Impression: As per impressions above Medical Decision Makin-year-old gentleman arrives for evaluation of near syncopal event. Patient was vacuuming and started getting significantly weak and lightheaded. He had a near syncopal event which was witnessed followed by slurred speech pale appearing and unwell. Taken to ER for further evaluation on arrival patient NIH is 0 he is neuro intact. He does appear dehydrated and tired. Further discussion he notes ongoing body aches and joint pains last few days. He has no dark urine. Laboratory work-up remarkable for equivocal Lyme but otherwise essentially unremarkable with normal CK etc. He had already had extensive laboratory and CT imaging ordered which were being obtained at the time I evaluated the patient. CT angio of the head, neck, chest, abdomen and pelvis had already been ordered and patient was taken for these tests. Fortunately these are essentially unremarkable for acute findings. There is some atherosclerosis in the left carotid and some abdominal aortic ectasia. It could be that the atherosclerosis in the left carotid may have caused a small stroke a t this point his NIH of 0 I do not feel that he would be in any way a TNKase candidate. Patient was feeling better after some fluids. With the equivocal Lyme but a new prolonged OR interval on EKG the near syncope the joint pains and body aches I suspect that he likely has an acute Lyme infection. 77-year-old with near syncopal event and his findings would necessitate hospitalization for syncope rule out. Hospitalist was consulted for further management. Patient was given some Rocephin for initial treatment of Lyme. With normal white count no low platelets and normal LFTs along with an initial smear for anaplasmosis as negative I think holding off on Doxy IV as reasonable at this time. Prior Medical Record and Triage/Nursing Notes reviewed by Me External chart reviewed by me including outpatient records from a few years ago Differentials:Vasovagal event, dehydration, infection, hypoglycemia, electrolyte abnormalities, cardiac sources, intracerebral event, pulmonary embolism, seizure, toxicologic, neurologic, as well as other pathologies. Vital Signs: reviewed and remarkable for hypertension normal saline bolus 2 L IV, Rocephin 2 g IV Interventions:normal saline bolus 2 L IV, Rocephin 2 g IV Labs:Reviewed and remarkable for an equivocal Lyme Imaging:CT angio imaging of the head, neck, chest, abdomen/pelvis as per radi ologist reports within record EKG:As per my interpretation. Indication near syncope. Sinus at 71 bpm with a first-degree AV block and a OR interval of 272. There is no ectopy nor ischemia. When compared to an EKG of January 2016 the OR interval has increased and there is some lateral ST changes that are new. Cardiac/Tele Monitoring: Cardiac Monitoring: An Order was placed for continuous cardiac monitoring. The monitor shows a rate of 70 with a normal sinus rhythm. Consults:Dr. Fry of the [facility] service Plan: Disposition:Hospitalization. Condition: Good History of Present Illness:77-year-old gentleman arrives for evaluation of weakness. Patient was vacuuming around his house which he does regularly without previous issues. He notes he started getting quite lightheaded and felt like he was about to pass out. His took him to the kitchen to have him sit down and called her son. Son arrived and noted patient was pale ashen and confused. Apparently did have some slurred speech prior to his arrival but that it resolved on his arrival. His NIH was 0 on son's initial evaluation. After short amount of time patient started appearing improved. He denies any current symptoms other than just feeling somewhat washed out and tired. Denies any chest pain, shortness of breath, palpitations, headache, neck pain, neurologic deficits abdominal pain, back pain, urinary/bowel symptoms, leg swelling or rashes. No known tick bites. He does spend a significant amount of time outside and states he was mowing yesterday. Denies any falls, trauma, injuries. No medications prior to arrival. He takes aspirin 81 mg daily no other blood thinners. He has no history of cardiac nor stroke issues. Does have a family history of aortic dissection. Past History:See Below Home Medications:See Below Allergies:No known drug allergy Vitals:Blood Pressure: 132/89, Pulse 70, RR 18, T 36.8C, O2 96% on RA Physical Exam: GENERAL: Patient is tired/dehydrated appearing and in mild distress. EYES: No scleral icterus, unremarkable pupils. ENT: Mucous membranes dry, no nasal congestion. NECK: No masses appreciated, nomeningismus, trachea is midline. RESPIRATORY: No dyspnea. Clear to auscultation and equal bilaterally. No wheeze, no rhonchi. CARDIOVASCULAR: Regular rate and rhythm.No murmurs, rubs, gallops appreciated. GASTROINTESTINAL: Abdomen soft, non-tender, no peritonitis.Bowel sounds positive.No masses appreciated. BACK: No midline tenderness, no CVA tenderness EXTREMITIES: Normal motion all extremities, no cyanosis, no edema. NEUROLOGIC: Alert and oriented, no focal neurologic deficits appreciated. SKIN: No rash, no jaundice, no diaphoresis. PSYCH: Appropriate GCS: 15 ED Course: Times/Reassessments: Patient doing well he does appear much better after some IV fluids. He is comfortable with hospitalization as family Abdon Morales MD Past Med/Surg History Medical History (Updated 11/30/22 @ 01:26 by Abdon Morales MD) Asthma NO INHALER/RECENT ISSUES Emphysema lung EMPHYSEMATOUS CHANGE PER CXR Glaucoma Hypertension Spinal stenosis Surgical History History of back surgery History of total left knee replacement Family History (Updated 09/01/20 @ 10:20 by LINDSAY Pierce) Other Family history of cancer in father Denies family history of Ovarian cancer Prostate cancer Diabetes Myocardial infarction Breast cancer Colorectal cancer Hypertension Social History (Updated 09/01/20 @ 10:21 by LINDSAY Pierce) Smoking Status: Former smoker Tobacco Type: Cigarettes Second Hand Exposure: No; Do You Dip or Chew Tobacco: No; Hx Alcohol Use: No Hx Substance Use: No Preferred Language: Turkmen Communication Ability: Effective Wafer Line Worker Required: No Beliefs That Will Affect Care: Uatsdin Uatsdin Beliefs: MAR marital status: Current Living Situation: Spouse current occupational status: retired Feels Safe at Home: Yes caffeine: No Dental Care, Regularly: No Physical Activity Frequency: 5-6 Times per Week Seatbelt Use: always Sunscreen Use: Yes Assistive Devices: Glasses Allergies Allergies Allergy/AdvReac Type Severity Reaction Status Date / Time No Known Allergies Allergy Unknown Verified 11/29/22 21:00 Home Meds Home Medications Medication Instructions Recorded Confirmed ferrous sulfate 325 mg (65 mg 325 mg PO DAILY 07/24/18 11/29/22 iron) tablet (iron) timolol 0.25 % eye drops 1 drp OPB QAM 07/24/18 11/29/22 travoprost 0.004 % eye drops 1 drp OPB QAM 07/24/18 11/29/22 (Travatan Z) aspirin 81 mg tablet,delayed 81 mg PO DAILY 11/29/22 11/29/22 release (Ecotrin Low Strength) travoprost 0.004 % eye drops 1 drp OPR PM 11/29/22 11/29/22 Previous Rx's Medication Instructions Recorded triamterene 37.5 1 tab PO DAILY #90 tabs 02/04/21 mg-hydrochlorothiazide 25 mg tablet Results & Data (ED) Vital Signs Vital Signs - 24 hr 11/29/22 16:17 11/29/22 17:49 11/29/22 16:23 Temperature 36.8 C Temperature Source Temporal Artery Scan Pulse Rate 70 70 Pulse Rate from SpO2 Sensor Respiratory Rate 18 Respiratory Effort / Characteristics Non-Labored Respiratory Depth Normal Blood Pressure 132/89 Blood Pressure Mean 103 Pulse Oximetry 96 96 Oxygen Delivery Method Room Air Room Air Sepsis Recent Fever Within 48 Hours No Sepsis New/Unexplained Change in Mental Status No Sepsis Action Taken by Nursing No Action Required 11/29/22 17:49 11/29/22 18:00 11/29/22 18:30 Temperature Temperature Source Pulse Rate 69 69 69 Pulse Rate from SpO2 Sensor 70 69 69 Respiratory Rate 19 22 23 Respiratory Effort / Characteristics Respiratory Depth Blood Pressure 136/88 Blood Pressure Mean 104 Pulse Oximetry 96 97 96 Oxygen Delivery Method Sepsis Recent Fever Within 48 Hours Sepsis New/Unexplained Change in Mental Status Sepsis Action Taken by Nursing 11/29/22 19:07 11/29/22 19:37 11/29/22 19:38 Temperature Temperature Source Pulse Rate 63 84 82 Pulse Rate from SpO2 Sensor 81 Respiratory Rate 22 20 19 Respiratory Effort / Characteristics Respiratory Depth Blood Pressure 153/83 H Blood Pressure Mean 106 Pulse Oximetry 99 96 Oxygen Delivery Method Room Air Sepsis Recent Fever Within 48 Hours Sepsis New/Unexplained Change in Mental Status Sepsis Action Taken by Nursing 11/29/22 19:38 11/29/22 20:01 11/29/22 21:00 Temperature Temperature Source Pulse Rate 79 80 Pulse Rate from SpO2 Sensor 81 Respiratory Rate 19 17 Respiratory Effort / Characteristics Respiratory Depth Blood Pressure 165/98 H 148/93 H 138/93 Blood Pressure Mean 120 111 108 Pulse Oximetry 97 96 Oxygen Delivery Method Room Air Room Air Sepsis Recent Fever Within 48 Hours Sepsis New/Unexplained Change in Mental Status Sepsis Action Taken by Nursing 11/29/22 21:43 11/29/22 22:00 Temperature Temperature Source Pulse Rate 79 81 Pulse Rate from SpO2 Sensor Respiratory Rate 18 Respiratory Effort / Characteristics Respiratory Depth Blood Pressure 175/97 H Blood Pressure Mean 123 Pulse Oximetry Oxygen Delivery Method Sepsis Recent Fever Within 48 Hours Sepsis New/Unexplained Change in Mental Status Sepsis Action Taken by Nursing Laboratory Data 11/29/22 17:45 11/29/22 17:45 Lab Results 11/29/22 11/29/22 11/29/22 Range/Units 17:45 17:45 17:45 WBC 10.50 (4.8-10.8) K/ul RBC 5.08 (4.70-6.10) M/uL Hgb 16.2 (14.0-18.0) g/dl Hct 47.3 (42.0-52.0) % MCV 93.1 (80.0-100.0) fL MCH 31.9 (25.0-34.0) pg MCHC 34.2 (32.0-36.0) g/dL RDW Std Deviation 42.1 (36.4-46.3) fL RDW Coeff of Rani 12.2 (11.5-14.5) % Plt Count 277 (130-400) K/uL MPV 9.3 L (9.4-12.4) fL Immature Gran % (Auto) 0.9 % Neut % (Auto) 80.7 % Lymph % (Auto) 8.8 % [place] % (Auto) 8.0 % Eos % (Auto) 1.3 % Baso % (Auto) 0.3 % Neut # (Auto) 8.48 H (1.40-6.50) K/uL Lymph # (Auto) 0.92 L (1.2-3.4) K/uL [place] # (Auto) 0.84 H (0.11-0.59) K/uL Eos # (Auto) 0.14 (0-0.50) K/uL Baso # (Auto) 0.03 (0-0.2) K/uL Immature Gran # (Auto) 0.09 (0.01-0.20) K/uL PT 10.9 (9.0-12.0) Seconds INR 1.0 (0.9-1.1) APTT 27.2 (21.0-31.0) Seconds PTT Ratio 1.0 Sodium 136 (136-145) mmol/L Potassium 5.0 (3.5-5.1) mmol/L Chloride 101 (98-107) mmol/L Carbon Dioxide 28 (21-32) mmol/L Anion Gap 7 (3-11) BUN 17 (6-23) mg/dl Creatinine 0.99 (0.6-1.4) mg/dl Est Cr Clr Drug Dosing Not Reportable Est GFR ( Amer) 84.2 ml/min Est GFR (Non-Af Amer) 72.6 ml/min BUN/Creatinine Ratio 17.2 (10-20) Glucose 131 H (70-99(Fasting)) mg/dl Calcium 9.6 (8.6-10.3) mg/dl Magnesium 2.4 (1.7-2.4) mg/dl Total Bilirubin 0.8 (0.2-1.0) mg/dl AST 18 (13-39) U/L ALT 17 (7-52) U/L Alkaline Phosphatase 65 (34-104) U/L Total Creatine Kinase (30-223) U/L Troponin I High Sens 4.9 (0-20) pg/ml Total Protein 8.1 (6.0-8.3) gm/dl Albumin 4.4 (3.4-5.0) gm/dl Globulin 3.7 (2.5-4.0) gm/dl Albumin/Globulin Ratio 1.2 (0.9-2) TSH (0.300-4.500) uIu/ml Urine Color Urine Appearance (Clear) Urine pH (4.5-7.5) Ur Specific [place] (1.000-1.030) Urine Protein (Negative) Urine Glucose (UA) (Negative) Urine Ketones (Negative) Urine Blood (Negative) Urine Nitrite (Negative) Urine Bilirubin (Negative) Urine Urobilinogen (Negative) Ur Leukocyte Esterase (Negative) Urine WBC (Auto) (0-5) /hpf Urine RBC (Auto) (0-4) /hpf U Hyaline Cast (Auto) (0-5) /lpf U Epithel Cells (Auto) (0-5) /lpf Urine Bacteria (Auto) (Negative) Anaplasma Smear See Comment Lyme Disease IgG Ab (Negative) Lyme Disease IgM Ab (Negative) 11/29/22 11/29/22 11/29/22 Range/Units 17:45 17:45 19:52 WBC (4.8-10.8) K/ul RBC (4.70-6.10) M/uL Hgb (14.0-18.0) g/dl Hct (42.0-52.0) % MCV (80.0-100.0) fL MCH (25.0-34.0) pg MCHC (32.0-36.0) g/dL RDW Std Deviation (36.4-46.3) fL RDW Coeff of Rani (11.5-14.5) % Plt Count (130-400) K/uL MPV (9.4-12.4) fL Immature Gran % (Auto) % Neut % (Auto) % Lymph % (Auto) % [place] % (Auto) % Eos % (Auto) % Baso % (Auto) % Neut # (Auto) (1.40-6.50) K/uL Lymph # (Auto) (1.2-3.4) K/uL [place] # (Auto) (0.11-0.59) K/uL Eos # (Auto) (0-0.50) K/uL Baso # (Auto) (0-0.2) K/uL Immature Gran # (Auto) (0.01-0.20) K/uL PT (9.0-12.0) Seconds INR (0.9-1.1) APTT (21.0-31.0) Seconds PTT Ratio Sodium (136-145) mmol/L Potassium (3.5-5.1) mmol/L Chloride (98-107) mmol/L Carbon Dioxide (21-32) mmol/L Anion Gap (3-11) BUN (6-23) mg/dl Creatinine (0.6-1.4) mg/dl Est Cr Clr Drug Dosing Est GFR ( Amer) ml/min Est GFR (Non-Af Amer) ml/min BUN/Creatinine Ratio (10-20) Glucose (70-99(Fasting)) mg/dl Calcium (8.6-10.3) mg/dl Magnesium (1.7-2.4) mg/dl Total Bilirubin (0.2-1.0) mg/dl AST (13-39) U/L ALT (7-52) U/L Alkaline Phosphatase (34-104) U/L Total Creatine Kinase 81 (30-223) U/L Troponin I High Sens 4.2 (0-20) pg/ml Total Protein (6.0-8.3) gm/dl Albumin (3.4-5.0) gm/dl Globulin (2.5-4.0) gm/dl Albumin/Globulin Ratio (0.9-2) TSH 1.991 (0.300-4.500) uIu/ml Urine Color Urine Appearance (Clear) Urine pH (4.5-7.5) Ur Specific [place] (1.000-1.030) Urine Protein (Negative) Urine Glucose (UA) (Negative) Urine Ketones (Negative) Urine Blood (Negative) Urine Nitrite (Negative) Urine Bilirubin (Negative) Urine Urobilinogen (Negative) Ur Leukocyte Esterase (Negative) Urine WBC (Auto) (0-5) /hpf Urine RBC (Auto) (0-4) /hpf U Hyaline Cast (Auto) (0-5) /lpf U Epithel Cells (Auto) (0-5) /lpf Urine Bacteria (Auto) (Negative) Anaplasma Smear Lyme Disease IgG Ab Negative (Negative) Lyme Disease IgM Ab Equivocal A (Negative) 11/29/22 Range/Units 19:52 WBC (4.8-10.8) K/ul RBC (4.70-6.10) M/uL Hgb (14.0-18.0) g/dl Hct (42.0-52.0) % MCV (80.0-100.0) fL MCH (25.0-34.0) pg MCHC (32.0-36.0) g/dL RDW Std Deviation (36.4-46.3) fL RDW Coeff of Rani (11.5-14.5) % Plt Count (130-400) K/uL MPV (9.4-12.4) fL Immature Gran % (Auto) % Neut % (Auto) % Lymph % (Auto) % [place] % (Auto) % Eos % (Auto) % Baso % (Auto) % Neut # (Auto) (1.40-6.50) K/uL Lymph # (Auto) (1.2-3.4) K/uL [place] # (Auto) (0.11-0.59) K/uL Eos # (Auto) (0-0.50) K/uL Baso # (Auto) (0-0.2) K/uL Immature Gran # (Auto) (0.01-0.20) K/uL PT (9.0-12.0) Seconds INR (0.9-1.1) APTT (21.0-31.0) Seconds PTT Ratio Sodium (136-145) mmol/L Potassium (3.5-5.1) mmol/L Chloride (98-107) mmol/L Carbon Dioxide (21-32) mmol/L Anion Gap (3-11) BUN (6-23) mg/dl Creatinine (0.6-1.4) mg/dl Est Cr Clr Drug Dosing Est GFR ( Amer) ml/min Est GFR (Non-Af Amer) ml/min BUN/Creatinine Ratio (10-20) Glucose (70-99(Fasting)) mg/dl Calcium (8.6-10.3) mg/dl Magnesium (1.7-2.4) mg/dl Total Bilirubin (0.2-1.0) mg/dl AST (13-39) U/L ALT (7-52) U/L Alkaline Phosphatase (34-104) U/L Total Creatine Kinase (30-223) U/L Troponin I High Sens (0-20) pg/ml Total Protein (6.0-8.3) gm/dl Albumin (3.4-5.0) gm/dl Globulin (2.5-4.0) gm/dl Albumin/Globulin Ratio (0.9-2) TSH (0.300-4.500) uIu/ml Urine Color Dark Yellow Urine Appearance Clear (Clear) Urine pH 6.0 (4.5-7.5) Ur Specific [place] > 1.045 H (1.000-1.030) Urine Protein Trace H (Negative) Urine Glucose (UA) Negative (Negative) Urine Ketones Trace H (Negative) Urine Blood Negative (Negative) Urine Nitrite Negative (Negative) Urine Bilirubin 1+ H (Negative) Urine Urobilinogen Negative (Negative) Ur Leukocyte Esterase Negative (Negative) Urine WBC (Auto) 1-5 (0-5) /hpf Urine RBC (Auto) 0-4 (0-4) /hpf U Hyaline Cast (Auto) 1-5 (0-5) /lpf U Epithel Cells (Auto) 5-10 H (0-5) /lpf Urine Bacteria (Auto) Negative (Negative) Anaplasma Smear Lyme Disease IgG Ab (Negative) Lyme Disease IgM Ab (Negative) Administered Medications Discontinued Medications Calcium Carbonate (Calcium Carbonate 500 Mg Chewable Tab) 1,000 mg PO NOW STA Stop: 11/29/22 21:32 Last Admin: 11/29/22 22:02 Dose: 1,000 mg Documented By: ALICIA Sodium Chloride (Nss 1000ml) 1,000 mls @ 999 mls/hr IV .Q1H1M ONE Stop: 11/29/22 19:02 Last Infusion: 11/29/22 19:10 Dose: 0 mls/hr Documented By: Admin: 11/29/22 18:18 Dose: 999 mls/hr Documented By: LIYAH Sodium Chloride (Nss 1000ml) 1,000 mls @ 999 mls/hr IV .Q1H1M ONE Stop: 11/29/22 21:02 Last Infusion: 11/29/22 21:26 Dose: 0 mls/hr Documented By: Admin: 11/29/22 20:15 Dose: 999 mls/hr Documented By: ALICIA Ceftriaxone Sodium (Rocephin) 2,000 mg in 70 mls @ 140 mls/hr IV NOW STA Stop: 11/29/22 20:42 Last Infusion: 11/29/22 21:15 Dose: 0 mls/hr Documented By: Admin: 11/29/22 20:30 Dose: 140 mls/hr Documented By: ALICIA Ioversol (Ioversol 350 Mg 125ml Prefilled Syringe) 118 ml IV ONCE ONE Stop: 11/29/22 19:34 Last Admin: 11/29/22 19:33 Dose: 118 ml Documented By: IFTIKHAR Imaging Data Radiologist's Impression: Chest X-Ray 11/29/22 16:23 SINGLE VIEW CHEST CLINICAL HISTORY: Exertional diaphoresis. FINDINGS: An AP, portable, upright chest radiograph is compared to study dated 07/18/2018. The cardiomediastinal silhouette is unremarkable. The lungs and pleural spaces are clear. No pneumothorax is seen. The skeletal structures are osteopenic. The bony thorax is grossly intact. Arthritic changes in the shoulders. IMPRESSION: No active disease in the chest. ACT 112: Negative or not required by law. Electronically signed by: Oliver Portillo M.D. 11/29/2022 4:56 PM Head CTA 11/29/22 16:23 Exam(s): CTA HEAD W/WO Contrast IV Amt: 118 ml optiray 350 EXAM: CT Angiography Head Without and With Intravenous Contrast CLINICAL HISTORY: Reason for exam: Diaphoresis, feeling unwell. TECHNIQUE: Axial computed tomographic angiography images of the head without and with intravenous contrast. CTDI is 36.67 mGy and DLP is 624.41 mGy-cm. Automated exposure control was utilized for the study. A dose lowering technique was utilized adhering to the principles of ALARA. MIP reconstructed images were created and reviewed. Moderate motion artifact on noncontrast exam. CONTRAST: Patient received 118 ml optiray 350 of IV contrast COMPARISON: None. FINDINGS: Right internal carotid artery: Patent. Right anterior cerebral artery: Patent. Right middle cerebral artery: Patent. Right posterior cerebral artery: Patent. Right vertebral artery: Patent. Left internal carotid artery: Patent. Left anterior cerebral artery: Patent. Left middle cerebral artery: Patent. Left posterior cerebral artery: Patent. Left vertebral artery: Patent. Basilar artery: Patent. Other: Mild atherosclerosis bilateral cavernous ICA, without significant stenosis. Noncontrast exam: Moderate age-related findings. No acute intracranial abnormality. IMPRESSION: 1. No acute findings on noncontrast portion of the exam. 2. No aneurysm or large vessel occlusion. Electronically signed by: Edelmira Kingsley M.D. 11/29/22 21:11 PM Neck CTA 11/29/22 16:23 Exam(s): CTA NECK With Contrast IV Amt: 118 ml optiray 350 EXAM: CT Angiography Neck With Intravenous Contrast CLINICAL HISTORY: Reason for exam: Diaphoresis, feeling unwell. TECHNIQUE: Routine carotid CT angiography protocol was performed with intravenous contrast. NASCET criteria using the distal ICAs for comparison were used for evaluation of stenoses. CTDI is 17.6 mGy and DLP is 666.21 mGy-cm. Automated exposure control was utilized for the study. A dose lowering technique was utilized adhering to the principles of ALARA. MIP reconstructed images were created and reviewed. CONTRAST: Patient received 118 ml optiray 350 of IV contrast COMPARISON: None. FINDINGS: Right common carotid artery: Patent. Right internal carotid artery: Patent. Right vertebral artery: Patent. Left common carotid artery: Patent. Left internal carotid artery: Patent. Left vertebral artery: Patent. Codominant. Other: Severe atherosclerosis left carotid bifurcation, without significant stenosis. Distal vessel normal in caliber. Minimal atherosclerosis of the right carotid bifurcation and aortic arch. No significant stenosis. IMPRESSION: 1. Severe LEFT carotid atherosclerosis without significant stenosis. 2. No dissection, occlusion, or significant stenosis. CAROTID STENOSIS REFERENCE USING NASCET CRITERIA: % ICA stenosis = (1 - narrowest ICA diameter/diameter of distal cervical ICA) x 100. Mild - <50% stenosis. Moderate - 50-69% stenosis. Severe - 70-94% stenosis. Near occlusion - 95-99% stenosis. Occluded - 100% stenosis. Electronically signed by: Edelmira Kingsley M.D. 11/29/22 21:15 PM Abdomen/Pelvis CTA 11/29/22 16:42 Exam(s): CTA ABDOMEN + PELVIS With Contrast IV Amt: 118 ml optiray 350 EXAM: CT Angiography Abdomen and Pelvis With Intravenous Contrast CLINICAL HISTORY: Reason for exam: Exertional Diaphoresis, fmhx of AAA. TECHNIQUE: Axial computed tomographic angiography images of the abdomen and pelvis with intravenous contrast. CTDI is 19.66 mGy and DLP is 1922.23 mGy-cm. Automated exposure control was utilized for the study. A dose lowering technique was utilized adhering to the principles of ALARA. MIP reconstructed images were created and reviewed. CONTRAST: Patient received 118 ml optiray 350 of IV contrast COMPARISON: None. FINDINGS: VASCULATURE: Aorta: Moderate ectasia and atherosclerosis. No abdominal aortic aneurysm. No dissection. 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 No occlusion or significant stenosis. SMA and JOSE are patent. Renal arteries: No occlusion or significant stenosis. Iliac arteries: Moderate ectasia and atherosclerosis. No occlusion or significant stenosis. ABDOMEN/PELVIS: Liver: Fatty with a subtle hypodensity anteriorly that may be assessed, though too small to accurately characterize, other lesions including neoplasm are not excluded. Gallbladder and bile ducts: No ductal dilation. Pancreas: No ductal dilation. Spleen: Unremarkable, for this technique. Adrenals: Unremarkable. Kidneys and ureters: No infarct or hydronephrosis. Stomach and bowel: Relatively gasless large and small bowel, wall thickening may be artifact from under distention, enterocolitis not excluded, correlate clinically. No obstruction. Small curvilinear haziness in the mesentery left upper quadrant, likely chronic, acute mesenteritis not excluded. No abscess or adenopathy. Extensive diverticulosis with sigmoid wall thickening that is nonspecific, may be chronic. No definite mesenteric edema to suggest an acute diverticulitis, though early disease could be missed in this setting. Normal appendix. Intraperitoneal space: No free air or fluid. Bones/joints: No acute fracture. Soft tissues: Unremarkable. Lymph nodes: No enlarged lymph nodes. Bladder: No stones. Reproductive: Unremarkable as visualized. IMPRESSION: 1. Moderate ectasia and atherosclerosis of the aortoiliac vessels. No dissection, aneurysm, branch vessel occlusion or end organ ischemia. 2. Mild stenosis celiac axis origin, with intermittent poststenotic dilatation up to 1 cm. 3. Fairly diffuse, possible enterocolitis, versus artifact from under distention of the bowel. 4. Diverticulosis, extensive in the sigmoid region, early acute diverticulitis can be missed. No perforation or abscess. 5. Nonspecific, minimal mesenteric haziness, likely chronic, acute mesenteritis difficult to entirely exclude. 6. Hepatic hypodensity too small to accurately characterize, probable cyst. Electronically signed by: Edelmira Kingsley M.D. 11/29/22 22:04 PM Chest CTA 11/29/22 16:42 Exam(s): CTA CHEST W/WO Contrast IV Amt: 118 ml optiray 350 EXAM: CT Angiography Chest Without and With Intravenous Contrast CLINICAL HISTORY: Reason for exam: Exertional Diaphoresis, fmhx of AAA. TECHNIQUE: Axial computed tomographic angiography images of the chest without and with intravenous contrast. CTDI is 19.66 mGy and DLP is 665.21 mGy-cm. Automated exposure control was utilized for the study. A dose lowering technique was utilized adhering to the principles of ALARA. MIP reconstructed images were created and reviewed. CONTRAST: Patient received 118 ml optiray 350 of IV contrast COMPARISON: None. FINDINGS: Aorta: Mild atherosclerosis and moderate ectasia. No dissection or aneurysm. CTA abdomen pelvis also done, dictated separately. Pulmonary arteries: No pulmonary congestion. Lungs: Clear. No consolidation. Pleural space: No significant effusion. No pneumothorax. Heart: Moderate cardiomegaly. No significant pericardial effusion. Bones/joints: No acute fracture. Soft tissues: Small hiatal hernia. Lymph nodes: No enlarged lymph nodes. IMPRESSION: 1. Aortic atherosclerosis and ectasia; no dissection or aneurysm. 2. Moderate cardiomegaly and small hiatal hernia incidentally noted. Electronically signed by: Edelmira Kingsley M.D. 11/29/22 21:19 PM Discharge Plan Visit Data Chief Complaint: Syncope (Near Syncope) Stated Complaint: SYNCOPE ED Provider: Abdon Morales Discharge Problem: Near syncope, Heart block AV first degree, Acute Lyme disease Patient Disposition: Admitted As Inpatient Discharge Instructions Interventions: ED Discharge Assessment Last Done: 11/30/22 00:45
[2022-11-29 18:26] LABS: Albumin Level 4.4 gm/dl (3.4-5.0); Anion Gap 7 (3-11); Bilirubin,Total 0.8 mg/dl (0.2-1.0); Calcium 9.6 mg/dl (8.6-10.3); Carbon Dioxide 28 mmol/L (21-32); Chloride 101 mmol/L (98-107); Magnesium 2.4 mg/dl (1.7-2.4); Sodium 136 mmol/L (136-145)
[2022-11-29 18:32] LABS: Alanine Aminotransferase 17 U/L (7-52); Albumin Globulin Ratio 1.2 (0.9-2); Alkaline Phosphatase 65 U/L (34-104); Aspartate Aminotransferase 18 U/L (13-39); BUN Creatinine Ratio 17.2 (10-20); Blood Urea Nitrogen 17 mg/dl (6-23); Est GFR (African American) 84.2 ml/min; Est GFR (Non-African American) 72.6 ml/min; Globulin 3.7 gm/dl (2.5-4.0); Glucose 131 mg/dl (70-99(Fasting)); Total Protein 8.1 gm/dl (6.0-8.3)
[2022-11-29 18:36] LABS: Troponin I High Sensitivity 4.9 pg/ml (0-20)
[2022-11-29 18:44] LABS: Partial Thromboplastin Time 27.2 Seconds (21.0-31.0); Prothrombin Time 10.9 Seconds (9.0-12.0)
[2022-11-29 19:03] LABS: Lyme Ab IgG w/WB Rflx Negative (Negative)
[2022-11-29 19:07] LABS: Lyme Ab IgM w/WB Rflx Equivocal (Negative)
[2022-11-29] MEDS ORDERED: IOVERSOL 350 MG 125mL Prefilled Syringe IV ONE (19:33)
[2022-11-29 20:11] LABS: Appearance Urine Clear (Clear); Bacteria Urine Automated Negative (Negative); Blood Urine Negative (Negative); Color Urine Dark Yellow; Glucose Urine UA Negative (Negative); Ketones Urine Trace (Negative); Leukocyte Esterase Urine Negative (Negative); Nitrite Urine Negative (Negative); Protein Urine Trace (Negative); RBC Urine Automated 0-4 /hpf (0-4); Specific Gravity Urine > 1.045 (1.000-1.030); Urobilinogen Urine Negative (Negative)
[2022-11-29 20:13] LABS: Bilirubin Urine 1+ (Negative)
[2022-11-29] MEDS ORDERED: cefTRIAXone SODIUM 2,000 MG/70 ML BAG IV STA (20:13)
--- NOTE | 2022-11-29 21:12 | CT Scan Report ---
Exam(s): CTA HEAD W/WO Contrast IV Amt: 118 ml optiray 350 EXAM: CT Angiography Head Without and With Intravenous Contrast CLINICAL HISTORY: Reason for exam: Diaphoresis, feeling unwell. TECHNIQUE: Axial computed tomographic angiography images of the head without and with intravenous contrast. CTDI is 36.67 mGy and DLP is 624.41 mGy-cm. Automated exposure control was utilized for the study. A dose lowering technique was utilized adhering to the principles of ALARA. MIP reconstructed images were created and reviewed. Moderate motion artifact on noncontrast exam. CONTRAST: Patient received 118 ml optiray 350 of IV contrast COMPARISON: None. FINDINGS: Right internal carotid artery: Patent. Right anterior cerebral artery: Patent. Right middle cerebral artery: Patent. Right posterior cerebral artery: Patent. Right vertebral artery: Patent. Left internal carotid artery: Patent. Left anterior cerebral artery: Patent. Left middle cerebral artery: Patent. Left posterior cerebral artery: Patent. Left vertebral artery: Patent. Basilar artery: Patent. Other: Mild atherosclerosis bilateral cavernous ICA, without significant stenosis. Noncontrast exam: Moderate age-related findings. No acute intracranial abnormality. IMPRESSION: 1. No acute findings on noncontrast portion of the exam. 2. No aneurysm or large vessel occlusion. Electronically signed by: Edelmira Kingsley M.D. 11/29/22 21:11 PM
--- NOTE | 2022-11-29 21:16 | CT Scan Report ---
Exam(s): CTA NECK With Contrast IV Amt: 118 ml optiray 350 EXAM: CT Angiography Neck With Intravenous Contrast CLINICAL HISTORY: Reason for exam: Diaphoresis, feeling unwell. TECHNIQUE: Routine carotid CT angiography protocol was performed with intravenous contrast. NASCET criteria using the distal ICAs for comparison were used for evaluation of stenoses. CTDI is 17.6 mGy and DLP is 666.21 mGy-cm. Automated exposure control was utilized for the study. A dose lowering technique was utilized adhering to the principles of ALARA. MIP reconstructed images were created and reviewed. CONTRAST: Patient received 118 ml optiray 350 of IV contrast COMPARISON: None. FINDINGS: Right common carotid artery: Patent. Right internal carotid artery: Patent. Right vertebral artery: Patent. Left common carotid artery: Patent. Left internal carotid artery: Patent. Left vertebral artery: Patent. Codominant. Other: Severe atherosclerosis left carotid bifurcation, without significant stenosis. Distal vessel normal in caliber. Minimal atherosclerosis of the right carotid bifurcation and aortic arch. No significant stenosis. IMPRESSION: 1. Severe LEFT carotid atherosclerosis without significant stenosis. 2. No dissection, occlusion, or significant stenosis. CAROTID STENOSIS REFERENCE USING NASCET CRITERIA: % ICA stenosis = (1 - narrowest ICA diameter/diameter of distal cervical ICA) x 100. Mild - <50% stenosis. Moderate - 50-69% stenosis. Severe - 70-94% stenosis. Near occlusion - 95-99% stenosis. Occluded - 100% stenosis. Electronically signed by: Edelmira Kingsley M.D. 11/29/22 21:15 PM
--- NOTE | 2022-11-29 21:21 | CT Scan Report ---
Exam(s): CTA CHEST W/WO Contrast IV Amt: 118 ml optiray 350 EXAM: CT Angiography Chest Without and With Intravenous Contrast CLINICAL HISTORY: Reason for exam: Exertional Diaphoresis, fmhx of AAA. TECHNIQUE: Axial computed tomographic angiography images of the chest without and with intravenous contrast. CTDI is 19.66 mGy and DLP is 665.21 mGy-cm. Automated exposure control was utilized for the study. A dose lowering technique was utilized adhering to the principles of ALARA. MIP reconstructed images were created and reviewed. CONTRAST: Patient received 118 ml optiray 350 of IV contrast COMPARISON: None. FINDINGS: Aorta: Mild atherosclerosis and moderate ectasia. No dissection or aneurysm. CTA abdomen pelvis also done, dictated separately. Pulmonary arteries: No pulmonary congestion. Lungs: Clear. No consolidation. Pleural space: No significant effusion. No pneumothorax. Heart: Moderate cardiomegaly. No significant pericardial effusion. Bones/joints: No acute fracture. Soft tissues: Small hiatal hernia. Lymph nodes: No enlarged lymph nodes. IMPRESSION: 1. Aortic atherosclerosis and ectasia; no dissection or aneurysm. 2. Moderate cardiomegaly and small hiatal hernia incidentally noted. Electronically signed by: Edelmira Kingsley M.D. 11/29/22 21:19 PM
[2022-11-29] MEDS ORDERED: CALCIUM CARBONATE 500 MG CHEWABLE TAB PO STA (21:31)
[2022-11-29 21:36] LABS: Troponin I High Sensitivity 4.2 pg/ml (0-20)
--- NOTE | 2022-11-29 22:06 | CT Scan Report ---
Exam(s): CTA ABDOMEN + PELVIS With Contrast IV Amt: 118 ml optiray 350 EXAM: CT Angiography Abdomen and Pelvis With Intravenous Contrast CLINICAL HISTORY: Reason for exam: Exertional Diaphoresis, fmhx of AAA. TECHNIQUE: Axial computed tomographic angiography images of the abdomen and pelvis with intravenous contrast. CTDI is 19.66 mGy and DLP is 1922.23 mGy-cm. Automated exposure control was utilized for the study. A dose lowering technique was utilized adhering to the principles of ALARA. MIP reconstructed images were created and reviewed. CONTRAST: Patient received 118 ml optiray 350 of IV contrast COMPARISON: None. FINDINGS: VASCULATURE: Aorta: Moderate ectasia and atherosclerosis. No abdominal aortic aneurysm. No dissection. 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 No occlusion or significant stenosis. SMA and JOSE are patent. Renal arteries: No occlusion or significant stenosis. Iliac arteries: Moderate ectasia and atherosclerosis. No occlusion or significant stenosis. ABDOMEN/PELVIS: Liver: Fatty with a subtle hypodensity anteriorly that may be assessed, though too small to accurately characterize, other lesions including neoplasm are not excluded. Gallbladder and bile ducts: No ductal dilation. Pancreas: No ductal dilation. Spleen: Unremarkable, for this technique. Adrenals: Unremarkable. Kidneys and ureters: No infarct or hydronephrosis. Stomach and bowel: Relatively gasless large and small bowel, wall thickening may be artifact from under distention, enterocolitis not excluded, correlate clinically. No obstruction. Small curvilinear haziness in the mesentery left upper quadrant, likely chronic, acute mesenteritis not excluded. No abscess or adenopathy. Extensive diverticulosis with sigmoid wall thickening that is nonspecific, may be chronic. No definite mesenteric edema to suggest an acute diverticulitis, though early disease could be missed in this setting. Normal appendix. Intraperitoneal space: No free air or fluid. Bones/joints: No acute fracture. Soft tissues: Unremarkable. Lymph nodes: No enlarged lymph nodes. Bladder: No stones. Reproductive: Unremarkable as visualized. IMPRESSION: 1. Moderate ectasia and atherosclerosis of the aortoiliac vessels. No dissection, aneurysm, branch vessel occlusion or end organ ischemia. 2. Mild stenosis celiac axis origin, with intermittent poststenotic dilatation up to 1 cm. 3. Fairly diffuse, possible enterocolitis, versus artifact from under distention of the bowel. 4. Diverticulosis, extensive in the sigmoid region, early acute diverticulitis can be missed. No perforation or abscess. 5. Nonspecific, minimal mesenteric haziness, likely chronic, acute mesenteritis difficult to entirely exclude. 6. Hepatic hypodensity too small to accurately characterize, probable cyst. Electronically signed by: Edelmira Kingsley M.D. 11/29/22 22:04 PM
--- NOTE | 2022-11-29 22:37 | History & Physical Report ---
Date of Service November 29, 2022 Assessment & Plan (1) Pre-syncope: Plan: Patient is a 77-year-old male with past medical history of hypertension who presents to the ED for evaluation of presyncope. Testing has overall been unremarkable except for an equivocal IgM Lyme antibody. Patient is hemodynamically stable. Patient to be admitted with telemetry for observation. -Admit to [facility] with telemetry, telemetry indication being presyncope -Suspect presyncope is in the setting of dehydration as patient has poor fluid intake. -Status post 2 boluses of 1 L of normal saline -We will treat for possible Lyme disease with doxycycline unless Western blot returns negative then can discontinue antibiotic -Very low suspicion that the patient's symptoms are due to a Lyme carditis however. -Echocardiogram ordered -Telemetry to rule out arrhythmia versus AV block -If telemetry does not show arrhythmia or heart block, consider outpatient event monitor -PT and OT ordered, appreciate recommendations (2) Dehydration: Plan: - Status post 2 boluses of normal saline with improved hydration status -Recommend scheduled fluid regimen in the outpatient setting when discharged to maintain hydration status (3) Hypertension: Plan: - Continue triamterene hydrochlorothiazide Plan Disposition: Admit to [facility] with telemetry for observation Diet: Heart healthy DVT prophylaxis: Heparin CODE STATUS: Full code as discussed with patient. History of Present Illness Chief Complaint: Presyncope Primary Care Provider: Jewell Valdez MD Patient is a 77-year-old male with past medical history of hypertension who presents to the ED for evaluation of presyncope. It seems today while he was running the vacuum, he had 2 episodes of where the patient began feeling lightheaded and sweaty almost resulting in passing out but with no full-blown syncope. The second episode was witnessed by the patient's who called their son to take him to the emergency department for further evaluation. Patient describes the sensation as a lightheaded feeling that lasted for a few seconds to a minute and he felt quite hot and sweaty when it did happen. These episodes occurred while he was vacuuming and did not come from a seating to standing position. Reports poor fluid intake and states that he only had a cup of coffee and half a can of soda to drink today. Hardly ever drinks water and states he does not drink much in general overall. No nausea or vomiting recently. No tremor, postictal state, or urinary incontinence. No diarrhea. Reports that his urine has been very dark today. Denies hematuria, dysuria, melena, or bright red blood per rectum. Denies any tick bites recently, however, patient does live next to the [facility]. No pets at home. No history of heart attack or stroke. No chest pain or shortness of breath. No other complaints at this time. Patient reports that he is feeling much better that he has received fluid in the emergency department. ED course: Patient seen by provider. Labs are significant for a Lyme titer equivocal for IgM antibody. CTA of the chest, head, neck, and abdomen and pelvis showed no acute process that would explain presyncope. EKG showing first-degree AV block. Patient was given 2 boluses of normal saline. 2 g of Rocephin were also given. The hospitalist service was consulted for further evaluation. Allergies Allergy/AdvReac Type Severity Reaction Status Date / Time No Known Allergies Allergy Unknown Verified 11/29/22 21:00 Home Medications Medication Instructions Recorded Confirmed Type ferrous sulfate 325 mg (65 mg 325 mg PO DAILY 07/24/18 11/29/22 History iron) tablet (iron) timolol 0.25 % eye drops 1 drp OPB QAM 07/24/18 11/29/22 History travoprost 0.004 % eye drops 1 drp OPB QAM 07/24/18 11/29/22 History (Travatan Z) triamterene 37.5 1 tab PO DAILY #90 tabs 02/04/21 11/29/22 Rx mg-hydrochlorothiazide 25 mg tablet aspirin 81 mg tablet,delayed 81 mg PO DAILY 11/29/22 11/29/22 History release (Ecotrin Low Strength) travoprost 0.004 % eye drops 1 drp OPR PM 11/29/22 11/29/22 History doxycycline hyclate 100 mg capsule 100 mg PO BID 7 days #14 caps 11/30/22 Rx Past Med/Surg History Medical History (Updated 11/30/22 @ 01:26 by Abdon Morales MD) Asthma NO INHALER/RECENT ISSUES Emphysema lung EMPHYSEMATOUS CHANGE PER CXR Glaucoma Hypertension Spinal stenosis Surgical History History of back surgery History of total left knee replacement Family History (Updated 09/01/20 @ 10:20 by LINDSAY Pierce) Other Family history of cancer in father Denies family history of Ovarian cancer Prostate cancer Diabetes Myocardial infarction Breast cancer Colorectal cancer Hypertension Social History (Updated 09/01/20 @ 10:21 by LINDSAY Pierce) Smoking Status: Former smoker Tobacco Type: Cigarettes Second Hand Exposure: No; Do You Dip or Chew Tobacco: No; Hx Alcohol Use: No Hx Substance Use: No Preferred Language: Faroese Communication Ability: Effective Pluck Separator Required: No Beliefs That Will Affect Care: Yarsanism Yarsanism Beliefs: MAR marital status: Current Living Situation: Spouse current occupational status: retired Feels Safe at Home: Yes caffeine: No Dental Care, Regularly: No Physical Activity Frequency: 5-6 Times per Week Seatbelt Use: always Sunscreen Use: Yes Assistive Devices: Glasses Review of Systems Review of Systems: All systems reviewed & are unremarkable except as noted in HPI & below Physical Exam Constitutional: WD/WN, vitals as above cooperative Eyes: + anicteric sclerae ENMT: Nose: + dry nasal mucous membranes Neck: trachea midline, no thyromegaly Respiratory: normal respiratory effort, lungs clear to auscultation Cardiovascular: RRR, no murmur, no edema Gastrointestinal (Abdomen): normal bowel sounds, soft, nontender, no hepatosplenomegaly Musculoskeletal: Head/Neck/Chest: normocephalic and head atraumatic Skin: no rashes, warm and dry Neurologic: moves all extremities Psychiatric: A+Ox3, euthymic affect Results & Data Results & Data Vital Signs (Past 12 Hours) Vital Signs Temp Pulse Resp BP Pulse Ox O2 Del Method 11/29/22 22:00 81 9 L 11/29/22 22:00 81 18 175/97 H 11/29/22 21:43 79 11/29/22 21:00 80 17 138/93 96 Room Air 11/29/22 20:01 79 19 148/93 H 97 Room Air 11/29/22 19:38 165/98 H 11/29/22 19:38 82 19 96 11/29/22 19:37 84 20 11/29/22 19:07 63 22 153/83 H 99 Room Air 11/29/22 18:30 69 23 96 11/29/22 18:00 69 22 136/88 97 11/29/22 17:49 69 19 96 11/29/22 16:23 96 Room Air 11/29/22 17:49 70 11/29/22 16:17 36.8 C 70 18 132/89 96 Room Air Code Status & VTE Plan VTE Prophylaxis Plan VTE Prophylaxis will be ordered: Yes Supervising Physician Co-Signing Physician Notes Attending addendum: I have physically seen this patient, have supervised the medical residents activities, and agree with the H&P unless as otherwise noted. Assessment and Plan: Near syncope/moderate dehydration- The patient will be admitted to telemetry for serial cardiac enzymes, serial EKG's, cardiac rhythm monitoring and a 2-D echocardiogram with Dopplers. Status post 2 L normal saline in the ED Status post ceftriaxone 2 g IV in ED Multiple imaging studies negative Consulting PT/OT Lyme IgM positive/Lyme IgG negative- Treat empirically with doxycycline until Western blot returns Hypertension- Hold triamterene/HCTZ due to borderline potassium of 5.0 and dehydration Remaining orders and notations as noted
[2022-11-30] MEDS ORDERED: POLYETHYLENE (MIRALAX) 17 GM PACK PO PRN (01:08)
[2022-11-30] MEDS ORDERED: ACETAMINOPHEN 325 MG TAB PO PRN (01:08)
[2022-11-30] MEDS ORDERED: CALCIUM CARBONATE 500 MG CHEWABLE TAB PO PRN (04:10)
[2022-11-30 06:45] LABS: Hematocrit (blood only) 37.1 % (42.0-52.0); Mean Corpuscular Hemoglobin 31.9 pg (25.0-34.0); Mean Corpuscular Volume 91.2 fL (80.0-100.0); Mean Platelet Volume 9.6 fL (9.4-12.4); Platelet Count 235 K/uL (130-400); RDW Coefficient of Variation 12.2 % (11.5-14.5); RDW Standard Deviation 40.7 fL (36.4-46.3); Red Blood Count 4.07 M/uL (4.70-6.10); White Blood Count 6.77 K/ul (4.8-10.8)
[2022-11-30 06:55] LABS: Calcium 8.7 mg/dl (8.6-10.3); Creatinine Clr Calc Pharmacy 77.3 ml/min; Est GFR (African American) 94.9 ml/min; Est GFR (Non-African American) 81.9 ml/min; Potassium 3.8 mmol/L (3.5-5.1)
[2022-11-30] MEDS ORDERED: TRAVOPROST Z 0.004% OPH SOLN 2.5 ML BTL OPB SCH (09:00)
[2022-11-30] MEDS ORDERED: TIMOLOL MALEATE 0.25% OP SOLN 5 ML BTL OPB SCH (09:00)
[2022-11-30] MEDS ORDERED: DOXYCYCLINE HYCLATE 100 MG in DEXTROSE 5% 100 ML IV SCH (09:00)
[2022-11-30] MEDS ORDERED: FERROUS SULFATE 325 MG TAB PO SCH (09:00)
[2022-11-30] MEDS ORDERED: ASPIRIN 81 MG ECTAB PO SCH (09:00)
[2022-11-30] MEDS ORDERED: TRIAMTERENE/HCTZ 37.5/25MG TAB PO SCH (09:00)
[2022-11-30] MEDS ORDERED: HEPARIN SOD 5,000 UNIT/0.5 ML VIAL SQ SCH (09:00)
--- NOTE | 2022-11-30 12:19 | Discharge Summary ---
Date of Service November 30, 2022 Admission HPI Per Admitting Provider Patient is a 77-year-old male with past medical history of hypertension who presents to the ED for evaluation of presyncope. It seems today while he was running the vacuum, he had 2 episodes of where the patient began feeling lightheaded and sweaty almost resulting in passing out but with no full-blown syncope. The second episode was witnessed by the patient's who called their son to take him to the emergency department for further evaluation. Patient describes the sensation as a lightheaded feeling that lasted for a few seconds to a minute and he felt quite hot and sweaty when it did happen. These episodes occurred while he was vacuuming and did not come from a seating to standing position. Reports poor fluid intake and states that he only had a cup of coffee and half a can of soda to drink today. Hardly ever drinks water and states he does not drink much in general overall. No nausea or vomiting recently. No tremor, postictal state, or urinary incontinence. No diarrhea. Reports that his urine has been very dark today. Denies hematuria, dysuria, melena, or bright red blood per rectum. Denies any tick bites recently, however, patient does live next to the [facility]. No pets at home. No history of heart attack or stroke. No chest pain or shortness of breath. No other complaints at this time. Patient reports that he is feeling much better that he has received fluid in the emergency department. ED course: Patient seen by provider. Labs are significant for a Lyme titer equivocal for IgM antibody. CTA of the chest, head, neck, and abdomen and pelvis showed no acute process that would explain presyncope. EKG showing first-degree AV block. Patient was given 2 boluses of normal saline. 2 g of Rocephin were also given. The hospitalist service was consulted for further evaluation. Principal Diagnosis presyncope Discharge Exam The patient is awake, alert and oriented 3, well developed and well nourished, normocephalic and atraumatic, lying in bed and in no acute distress. HEENT--PERRL, EOMI, mucous membranes and oropharynx mildly dry Neck--supple. No JVD. No bruits. Thyroid normal, trachea midline, no adenopathy. Heart--normal S1 and S2. No murmurs, rubs or gallops. Lungs--clear bilaterally, no respiratory distress, no accessory muscle use. Abdomen--normal bowel sounds and soft. Mild epigastric and left sided abdominal pain Extremities--no cyanosis or clubbing. No edema. Dermatologic--normal skin turgor, normal color, no abnormal lymph nodes, no rash. Neurologic--cranial nerves II through XII grossly intact. Rheumatologic--normal range of motion. Psychiatric--normal affect. Discharge Data Allergies Allergy/AdvReac Type Severity Reaction Status Date / Time No Known Allergies Allergy Unknown Verified 11/29/22 21:00 Consultations 11/29/22 20:46 ED Decision to Admit Stat Ordered Studies 11/29/22 16:23 CT angio head wo/w Stat CT angio neck with con Stat 11/29/22 16:42 CT angio abdomen pelvis w con Stat CT angio chest dissec wo/w con Stat Hospital Course (1) Near syncope: Patient admitted to the hospital on account of a near syncopal episode. Thought to have been due to dehydration, his blood pressure was a bit low. He received some IV fluids. Upon reexamination at this morning, patient felt a lot better and said he wanted to be discharged. Of note, his Lyme IgM was equivocal and the Western blot was obtained, result pending. For now we will discharge him on p.o. doxycycline for 7 more days. If there is another Western blot comes back positive we will extend the doxycycline dose. (2) Pre-syncope: Plan Discharge home Total Time Total Time Spent Total Time Spent (In Minutes): 35 Discharge Plan Discharge Items Patient Disposition: Home - Self-Care Reason For Visit: PRE-SYNCOPE Discharge Diagnosis: pre syncope Activity: Resume your previous activity Non-emergency contact: Primary Care Provider Call non-emergency contact if: you have any medication questions Follow-up/Referrals: Jewell Valdez MD [Primary Care Provider] - Diet: Regular Addtl Attending Provider Instructions: please follow up with your regular PCP Pending Studies at Discharge: Yes Studies:: Lyme western blot Stand-Alone Forms: My [employer], Smoking Cessation Medications and DC Order Prescriptions: New doxycycline hyclate 100 mg tablet 100 mg PO BID 7 Days Qty: 14 0RF Continued triamterene-hydrochlorothiazid 37.5-25 mg tablet 1 tab PO DAILY Qty: 90 2RF travoprost [Travatan Z] 0.004 % Drops 1 drp OPB QAM ferrous sulfate [iron] 325 mg (65 mg iron) Tablet 325 mg PO DAILY timolol 0.25 % Drops 1 drp OPB QAM aspirin [Ecotrin Low Strength] 81 mg tablet,delayed release (DR/EC) 81 mg PO DAILY travoprost 0.004 % Drops 1 drp OPR PM Discharge Orders: Discharge Order (Routine); Ordered 11/30/22 Ordered By: Farhan White Admission Data Admit Date/Time: 11/29/22 22:08 Attending Provider: Farhan White Admit Provider: Ed Lam Primary Care Provider: Jewell Valdez Other Providers: Jose Eduardo Fry Other Interventions: Discharge Summary Assessment (RN) Last Done: 11/30/22 11:44 Coding Level of Care Code 71279 INP/OBS DISCH >30 MIN Diagnoses Near syncope R55 Time Spent (min) 35
--- NOTE | 2022-11-30 17:16 | XCELERA ---
[id number]
--- NOTE | 2022-11-30 19:41 | Billing Data ---
Date of Service November 30, 2022 Coding Level of Care Code 46510 INT INP/OBS CARE
[2022-11-30] MEDS ORDERED: TRAVOPROST Z 0.004% OPH SOLN 2.5 ML BTL OPR SCH (21:00)
[2022-12-01 15:13] LABS: 18KDIGG Band NON-REACTIVE; 23KDIGG Band NON-REACTIVE; 23KDIGM Band REACTIVE; 28KDIGG Band NON-REACTIVE; 30KDIGG Band NON-REACTIVE; 39KDIGG Band NON-REACTIVE; 39KDIGM Band NON-REACTIVE; 41KDIGG Band REACTIVE; 41KDIGM Band NON-REACTIVE; 45KDIGG Band NON-REACTIVE; 58KDIGG Band REACTIVE; 66KDIGG Band NON-REACTIVE; 93KDIGG Band NON-REACTIVE; Lyme Antibodies, WB IgG NEGATIVE (NEGATIVE); Lyme Antibodies, WB IgM NEGATIVE (NEGATIVE)
--- NOTE | 2022-12-01 23:02 | Electrocardiogram Report ---
Test Reason : Blood Pressure : / mmHG Vent. Rate : 071 BPM Atrial Rate : 071 BPM P-R Int : 272 ms QRS Dur : 086 ms QT Int : 396 ms P-R-T Axes : 054 005 049 degrees QTc Int : 431 ms Sinus rhythm with 1st degree A-V block Cannot rule out Inferior infarct , age undetermined Nonspecific T wave abnormality Abnormal ECG When compared with ECG of 27-JAN-2016 13:51, Minimal criteria for Inferior infarct are now Present Nonspecific T wave abnormality now evident in Anterolateral leads Confirmed by Carson Chiang ([id number]) on 12/01/2022 11:02:18 PM Referred By: REFERRED SELF Confirmed By:Carson Chiang
== END 2022-11-30 13:30 | disposition home or self-care (01) ==
LOC: 2W 16:16 → ED 16:16 → SUATTDRO 22:08 → 2W 11-30 00:45

== ENCOUNTER 2023-04-30 18:56 | Inpatient (IN) ==
[2023-04-30 20:33] LABS: Hematocrit (blood only) 46.7 % (42.0-52.0); Hemoglobin 15.7 g/dl (14.0-18.0); Mean Corpuscular Hemoglobin 31.2 pg (25.0-34.0); Mean Corpuscular Hgb Conc 33.6 g/dL (32.0-36.0); Mean Corpuscular Volume 92.7 fL (80.0-100.0); Mean Platelet Volume 9.4 fL (9.4-12.4); Platelet Count 329 K/uL (130-400); RDW Coefficient of Variation 12.3 % (11.5-14.5); RDW Standard Deviation 42.3 fL (36.4-46.3); Red Blood Count 5.04 M/uL (4.70-6.10); White Blood Count 12.18 K/ul (4.8-10.8)
[2023-04-30 20:44] LABS: Alanine Aminotransferase 14 U/L (7-52); Albumin Globulin Ratio 1.2 (0.9-2); Albumin Level 4.4 gm/dl (3.4-5.0); Alkaline Phosphatase 56 U/L (34-104); Anion Gap 9 (3-11); Aspartate Aminotransferase 20 U/L (13-39); BUN Creatinine Ratio 16.8 (10-20); Bilirubin,Total 0.9 mg/dl (0.2-1.0); Blood Urea Nitrogen 16 mg/dl (6-23); Calcium 9.4 mg/dl (8.6-10.3); Carbon Dioxide 25 mmol/L (21-32); Chloride 101 mmol/L (98-107); Est GFR (African American) 88.5 ml/min; Est GFR (Non-African American) 76.4 ml/min; Globulin 3.6 gm/dl (2.5-4.0); Glucose 134 mg/dl (70-99(Fasting)); Potassium 4.1 mmol/L (3.5-5.1); Sodium 135 mmol/L (136-145)
[2023-04-30 20:51] LABS: Basophils # (auto) 0.02 K/uL (0.00-0.20); Basophils % (auto) 0.2 %; Eosinophils # (auto) 0.01 K/uL (0.00-0.50); Eosinophils % (auto) 0.1 %; Immature Granulocytes # (auto) 0.07 K/uL (0.01-0.20); Immature Granulocytes % (auto) 0.6 %; Lymphocytes # (auto) 0.19 K/uL (1.20-3.40); Lymphocytes % (auto) 1.6 %; Monocytes # (auto) 0.36 K/uL (0.11-0.59); Neutrophils # (auto) 11.53 K/uL (1.40-6.50); Neutrophils % (auto) 94.5 %
[2023-04-30 21:02] LABS: Partial Thromboplastin Time 29 Seconds (21-31)
[2023-04-30] MEDS ORDERED: SODIUM CHLORIDE 0.9% 500 ML IV ONE (21:04)
[2023-04-30 21:11] LABS: Adenovirus PCR Not Detected (NotDetected); Bordetella parapertussis PCR Not Detected (NotDetected); Bordetella pertussis PCR Not Detected (NotDetected); Chlamydia pneumoniae PCR Not Detected (NotDetected); Coronavirus 229E PCR Not Detected (NotDetected); Coronavirus CoV-2 (COVID19)PCR Not Detected (NotDetected); Coronavirus HKU1 PCR Not Detected (NotDetected); Coronavirus NL63 PCR Not Detected (NotDetected); Coronavirus OC43PCR Not Detected (NotDetected); Human Metapneumovirus PCR Not Detected (NotDetected); Influenza A PCR Not Detected (NotDetected); Influenza B PCR Not Detected (NotDetected); Mycoplasma pneumoniae PCR Not Detected (NotDetected); Parainfluenza Virus 1 PCR Not Detected (NotDetected); Parainfluenza Virus 2 PCR Not Detected (NotDetected); Parainfluenza Virus 3 PCR Not Detected (NotDetected); Parainfluenza Virus 4 PCR Not Detected (NotDetected); Respiratory Syncytial VirusPCR Not Detected (NotDetected); Rhinovirus/Enterovirus PCR Not Detected (NotDetected)
[2023-04-30 21:24] LABS: Base Excess VBG 2.9 mEq/L; HCO3 VBG 28 mmol/L; Oxygen Saturation VBG < 60.0 %; PCO2 VBG 43 mmHg (38-50); PO2 VBG 37 mmHg; pH VBG 7.42 (7.36-7.41)
--- NOTE | 2023-04-30 21:40 | Emergency Department Note ---
Impression & Plan Weakness, Elevated troponin I level, Diarrhea ED Provider Note NAME: BETZY FLOR AGE: 77 SEX: M : 1945 ARRIVES VIA: Walk-In INFORMANT: Patient, the patient's family members ED PROVIDER(S): Calvin Hein DO CHIEF COMPLAINT: Weakness HPI: The patient is a 77-year-old male who presented to the emergency department for an evaluation of weakness. The patient presented through triage. The patient's family members brought him to the emergency department for evaluation. The patient's son was called by the patient's significant other to check on his father. The patient was experiencing problems with loose bowel movements over the course of the last few days. He denies having any black or tarry stools. He was found to be weak and unable to walk. There was no reported fall. The patient denies having any abdominal pain or chest pain. He denies having any fever. He has been very slow to answer questions but also slow with ambulating especially over the course of the last few weeks but especially this evening. He required significant assist to ambulate. The patient reportedly has been compliant with his outpatient medications. ROS: See above HPI for pertinent positives & negatives. A total of 10 systems reviewed and were otherwise negative. PAST MEDICAL HISTORY: See Below PAST SURGICAL HISTORY: See Below FAMILY HISTORY: See Below SOCIAL HISTORY: See Below HOME MEDICATIONS: See Below ALLERGIES: See Below VITALS: See Below PHYSICAL EXAMINATION: GENERAL: The patient is awake and alert. He is slow to answer questions but answers questions appropriately. Dry. EYES: The conjunctivae are clear. The pupils are round and reactive. EARS, NOSE, MOUTH AND THROAT: The nose is without any evidence of any deformity. Mucous membranes are moist. Tongue is midline. NECK: The neck is nontender and supple. RESPIRATORY: Normal respiratory effort is noted there is no evidence of wheezing rhonchi or rales CARDIOVASCULAR: Regular rate and rhythm noted there no murmurs rubs or gallops normal S1 normal S2. GASTROINTESTINAL: The abdomen is soft and nondistended. There is no specific guarding or rigidity appreciated. MUSCULOSKELETAL/EXTREMITIES: There is no evidence of gross deformity full range of motion is noted in the hips and shoulders. SKIN: Pedal edema was noted bilaterally. Skin was warm and dry. NEUROLOGIC: Patient is awake and oriented to person place and time. He does take time to answer questions but does ultimately get the questions correct. He does recognize his son as well as his [id number]. Strength was symmetric but diminished. He is able to hold each leg off the bed for greater than 5 seconds. There is no drift in the upper extremities. MEDICAL DECISION MAKING: The patient is a 77-year-old male who presented to the emergency department with family for an evaluation of generalized weakness. The patient has been having problems with loose stools recently. He was not able to ambulate on his own today which was new for him. The patient was treated with IV fluids in the emergency department. He was reevaluated multiple times. I discussed the patient's laboratory and radiographic studies with him and his family members. He was treated with IV fluids and this seemed to improve his tachycardia. Laboratory studies do not reflect significant dehydration however. Troponin was elevated but the patient at this time has no chest pain or hypoxia. This may require further inpatient management and workup. For this reason I will discuss this case with the on-call [facility] hospitalist. Triage Nursing notes reviewed. Prior medical records reviewed Vital Signs: reviewed and remarkable for tachycardia. Differential diagnosis: Infection, dehydration, metabolic abnormality, hypo/hyperglycemia, electrolyte disturbance, anemia, hypoxia, cardiac sources, intracerebral event, toxicologic, neurologic, as well as other pathologies. ER treatment provided: See below Diagnostics interpreted by me: ECG: EKG was obtained in the emergency department. My interpretation is sinus tachycardia at 106 bpm. First-degree AV block was noted. Nonspecific T wave inversions were noted in the lower lateral leads. This was compared to a tracing from November 29, 2022. No specific changes were noted. Cardiac Monitoring: An order was placed for continuous cardiac monitoring. The monitor shows a rate of 97 bpm with sinus rhythm. Laboratory studies: As stated above and show below. Imaging studies: See below. Radiographic imaging was reviewed by myself Consultation(s): Dr. Vences was notified about the patient. She will evaluate the patient in the emergency department Past Med/Surg History Medical History Hypertension Emphysema lung EMPHYSEMATOUS CHANGE PER CXR Asthma NO INHALER/RECENT ISSUES Spinal stenosis Glaucoma Surgical History History of total left knee replacement + SUBSEQUENT REVISIONS History of back surgery LUMBAR Family History Other Family history of cancer in father Denies family history of Ovarian cancer Prostate cancer Diabetes Myocardial infarction Breast cancer Colorectal cancer Hypertension Social History Smoking Status: Former smoker Tobacco Type: Cigarettes Second Hand Exposure: No; Do You Dip or Chew Tobacco: No; Hx Alcohol Use: No Hx Substance Use: No Preferred Language: Portuguese Communication Ability: Effective Plan Checker Required: No Beliefs That Will Affect Care: [facility] Beliefs: MAR marital status: Current Living Situation: Spouse current occupational status: retired Feels Safe at Home: Yes caffeine: No Dental Care, Regularly: No Physical Activity Frequency: 5-6 Times per Week Seatbelt Use: always Sunscreen Use: Yes Assistive Devices: Glasses Allergies Allergies Allergy/AdvReac Type Severity Reaction Status Date / Time No Known Allergies Allergy Unknown Verified 12/03/22 11:34 Home Meds Home Medications Medication Instructions Recorded Confirmed ferrous sulfate 325 mg (65 mg 325 mg PO DAILY 07/24/18 12/03/22 iron) tablet (iron) timolol 0.25 % eye drops 1 drp OPB QAM 07/24/18 12/03/22 travoprost 0.004 % eye drops 1 drp OPB QAM 07/24/18 12/03/22 (Travatan Z) aspirin 81 mg tablet,delayed 81 mg PO DAILY 11/29/22 12/03/22 release (Ecotrin Low Strength) travoprost 0.004 % eye drops 1 drp OPR PM 11/29/22 12/03/22 Previous Rx's Medication Instructions Recorded triamterene 37.5 1 tab PO DAILY #90 tabs 12/03/22 mg-hydrochlorothiazide 25 mg tablet Results & Data (ED) Vital Signs Vital Signs - 24 hr 04/30/23 19:09 04/30/23 21:14 Temperature 36.6 C Temperature Source Oral Pulse Rate 111 H Pulse Rate [Left Apical] 97 H Pulse Rhythm Regular Pulse Strength Normal Respiratory Rate 19 14 Respiratory Effort / Characteristics Non-Labored Spontaneous Non-Labored Respiratory Depth Normal Normal Respiratory Pattern Regular Blood Pressure [Right Arm] 130/86 Blood Pressure Mean [Right Arm] 100 Blood Pressure Position Sitting Pulse Oximetry 95 94 Oxygen Delivery Method Room Air Room Air Sepsis Recent Fever Within 48 Hours No Sepsis New/Unexplained Change in Mental Status N/A Sepsis Action Taken by Nursing No Action Required Home Medications Current Medication List: was personally reviewed by me Laboratory Data Attestation: I reviewed the patient's lab results. 04/30/23 20:05 04/30/23 20:05 Lab Results 04/30/23 04/30/23 Range/Units 20:05 21:10 WBC 12.18 H (4.8-10.8) K/ul RBC 5.04 (4.70-6.10) M/uL Hgb 15.7 (14.0-18.0) g/dl Hct 46.7 (42.0-52.0) % MCV 92.7 (80.0-100.0) fL MCH 31.2 (25.0-34.0) pg MCHC 33.6 (32.0-36.0) g/dL RDW Std Deviation 42.3 (36.4-46.3) fL RDW Coeff of Rani 12.3 (11.5-14.5) % Plt Count 329 (130-400) K/uL MPV 9.4 (9.4-12.4) fL Immature Gran % (Auto) 0.6 % Neut % (Auto) 94.5 % Lymph % (Auto) 1.6 % [place] % (Auto) 3.0 % Eos % (Auto) 0.1 % Baso % (Auto) 0.2 % Neut # (Auto) 11.53 H (1.40-6.50) K/uL Lymph # (Auto) 0.19 L (1.20-3.40) K/uL [place] # (Auto) 0.36 (0.11-0.59) K/uL Eos # (Auto) 0.01 (0.00-0.50) K/uL Baso # (Auto) 0.02 (0.00-0.20) K/uL Immature Gran # (Auto) 0.07 (0.01-0.20) K/uL APTT 29 (21-31) Seconds PTT Ratio 1.0 VBG pH 7.42 H (7.36-7.41) VBG pCO2 43 (38-50) mmHg VBG pO2 37 mmHg VBG HCO3 28 mmol/L VBG O2 Saturation < 60.0 % VBG Base Excess 2.9 mEq/L Sodium 135 L (136-145) mmol/L Potassium 4.1 (3.5-5.1) mmol/L Chloride 101 (98-107) mmol/L Carbon Dioxide 25 (21-32) mmol/L Anion Gap 9 (3-11) BUN 16 (6-23) mg/dl Creatinine 0.95 (0.6-1.4) mg/dl Est Cr Clr Drug Dosing Not Reportable Est GFR ( Amer) 88.5 ml/min Est GFR (Non-Af Amer) 76.4 ml/min BUN/Creatinine Ratio 16.8 (10-20) Glucose 134 H (70-99(Fasting)) mg/dl Calcium 9.4 (8.6-10.3) mg/dl Magnesium 2.0 (1.7-2.4) mg/dl Total Bilirubin 0.9 (0.2-1.0) mg/dl AST 20 (13-39) U/L ALT 14 (7-52) U/L Alkaline Phosphatase 56 (34-104) U/L Ammonia 29.0 (18-72) umol/L Troponin I High Sens 64.3 H* (0-20) pg/ml Total Protein 8.0 (6.0-8.3) gm/dl Albumin 4.4 (3.4-5.0) gm/dl Globulin 3.6 (2.5-4.0) gm/dl Albumin/Globulin Ratio 1.2 (0.9-2) TSH 1.051 (0.300-4.500) uIu/ml Adenovirus (PCR) Not Detected (NotDetected) B. pertussis DNA (PCR) Not Detected (NotDetected) B.parapertussis DNA PCR Not Detected (NotDetected) C. pneumoniae DNA (PCR) Not Detected (NotDetected) Coronavirus OC43 (PCR) Not Detected (NotDetected) Coronavirus HKU1 (PCR) Not Detected (NotDetected) Coronavirus 229E (PCR) Not Detected (NotDetected) SARS-CoV-2 (PCR) Not Detected (NotDetected) Coronavirus NL63 (PCR) Not Detected (NotDetected) Human Metapneumovir PCR Not Detected (NotDetected) Influenza Type A (PCR) Not Detected (NotDetected) Influenza Type B (PCR) Not Detected (NotDetected) M. pneumoniae (PCR) Not Detected (NotDetected) Parainfluenza 1 (PCR) Not Detected (NotDetected) Parainfluenza 2 (PCR) Not Detected (NotDetected) Parainfluenza 3 (PCR) Not Detected (NotDetected) Parainfluenza 4 (PCR) Not Detected (NotDetected) RSV (PCR) Not Detected (NotDetected) Entero/Rhino (PCR) Not Detected (NotDetected) Administered Medications Discontinued Medications Sodium Chloride (Nss) 500 mls @ 999 mls/hr IV .Q31M ONE Stop: 04/30/23 21:34 Last Infusion: 04/30/23 21:52 Dose: Infused Documented By: [facility] Admin: 04/30/23 21:11 Dose: 999 mls/hr Documented By: [facility] Imaging Data Attestation: I personally reviewed and interpreted this imaging study as follows: My Impression: 1 view chest x-ray was obtained in the emergency department. My interpretation is no free air or definite infiltrate, tortuous aorta was noted, this was compared to a chest x-ray from November 29, 2022. No specific changes were noted CT of the brain was obtained in the emergency department. My interpretation is no intracranial hemorrhage or mass effect, final report pending. There appears to be dilation of the ventricles globally. This appears similar to the CT of the brain from October 2022. Discharge Plan Visit Data Chief Complaint: Dehydration Stated Complaint: DEHYDRATION, LETHARGIC, WEAKNESS ED Provider: Calvin Hein Discharge Problem: Weakness, Elevated troponin I level, Diarrhea Patient Disposition: Being Evaluated by Hospitalist Forms Stand Alone Forms: [facility] Prescriptions Prescriptions: No Action triamterene-hydrochlorothiazid 37.5-25 mg tablet 1 tab PO DAILY Qty: 90 2RF travoprost [Travatan Z] 0.004 % Drops 1 drp OPB QAM ferrous sulfate [iron] 325 mg (65 mg iron) Tablet 325 mg PO DAILY timolol 0.25 % Drops 1 drp OPB QAM aspirin [Ecotrin Low Strength] 81 mg tablet,delayed release (DR/EC) 81 mg PO DAILY travoprost 0.004 % Drops 1 drp OPR PM Referrals Referrals: Jewell Valdez MD [Primary Care Provider] - Discharge Problem: Diarrhea Qualifiers: Diarrhea type: unspecified type Qualified Code(s): R19.7 - Diarrhea, unspecified
[2023-04-30 21:41] LABS: Troponin I High Sensitivity 64.3 pg/ml (0-20)
[2023-04-30 21:58] LABS: Thyroid Stimulating Hormone 1.051 uIu/ml (0.300-4.500)
--- NOTE | 2023-04-30 22:58 | History & Physical Report ---
Date of Service April 30, 2023 Assessment & Plan (1) Diarrhea: Plan: Possible source of weakness, diarrhea leading to dehydration. Patient is uncertain how long he has had the diarrhea. He thinks that it may have started after [place]. He has at least one watery BM daily. No blood reported -Check stool PCR and C. diff -IVF and electrolyte repletion (2) Elevated troponin I level: Plan: Patient denies chest pain or palpitations. Troponin 64.3 --> 77.4. Some nonspecific changes on EKG. No ST elevation. -Telemetry monitoring -Trend troponin -Check 2D echo in AM (3) Weakness: Plan: Etiology unclear. Electrolytes are largely normal, no obvious source of infection - UA, CXR, respiratory biofire panel NEGATIVE. Stool PCR and c. diff pending. Suspect dehydration is at least contributing in part -IVF -Await stool studies -PT/OT evaluation (4) Hypertension: History of Present Illness Chief Complaint: weakness Primary Care Provider: Jewell Valdez MD Ezekiel Wilkins is a pleasant 77yo male with history of HTN, Asthma and Emphysema presenting with weakness. Family reports that patient has had some degree of progressive functional decline over the last year. He has occasional episodes of weakness. This morning he woke and did not feel well. He felt very weak and fatigued, occasional dizziness. He spent most of the day in bed and had a difficult time standing and ambulating. He also had some watery diarrhea, dark in color. At baseline patient lives with his . He if fairly independent. He denies fever, chills, chest pain, palpitations, cough, SOB. Denies nausea, vomiting. No urinary complaints. No additional complaints at this time. In the ER he is afebrile, HD stable. ER Course: NSS x 500mL Allergies Allergy/AdvReac Type Severity Reaction Status Date / Time No Known Allergies Allergy Unknown Verified 04/30/23 23:06 Home Medications Medication Instructions Recorded Confirmed Type timolol 0.25 % eye drops 1 drp OPB QAM 07/24/18 04/30/23 History travoprost 0.004 % eye drops 1 drp OPB QAM 07/24/18 04/30/23 History (Travatan Z) acetaminophen 325 mg tablet 650 mg PO QID PRN Fever Or Pain 04/30/23 04/30/23 History (Tylenol) Past Med/Surg History Medical History Hypertension Emphysema lung EMPHYSEMATOUS CHANGE PER CXR Asthma NO INHALER/RECENT ISSUES Spinal stenosis Glaucoma Surgical History History of total left knee replacement + SUBSEQUENT REVISIONS History of back surgery LUMBAR Family History Other Family history of cancer in father Denies family history of Ovarian cancer Prostate cancer Diabetes Myocardial infarction Breast cancer Colorectal cancer Hypertension Social History Smoking Status: Never smoker Tobacco Type: Smokeless Tobacco (Dip or Chew) Second Hand Exposure: No; Do You Dip or Chew Tobacco: Yes; Tobacco Cessation Education Requested by Patient: No Hx Alcohol Use: Yes Hx Substance Use: No Preferred Language: Nepalese Communication Ability: Effective Director Of Cardiac Rehabilitation Required: No Beliefs That Will Affect Care: None marital status: Current Living Situation: Spouse current occupational status: retired Feels Safe at Home: Yes Safety Concerns: Feels Safe At This Time caffeine: No Dental Care, Regularly: No Physical Activity Frequency: 5-6 Times per Week Seatbelt Use: always Sunscreen Use: Yes Assistive Devices: Cane, Denture - Upper and Denture - Lower Assistive Devices Comment: cane at bedside Review of Systems Review of Systems: All systems reviewed & are unremarkable except as noted in HPI & below Physical Exam Physical Exam: General: patient resting comfortably, NAD, non-toxic in appearance, AA&O x 4 Skin: warm, dry, intact, no rashes or lesions HEENT: NC/AT, PERRL, EOMI, anicteric sclera, conjunctiva without injection, external ear normal to inspection and nontender, nares patent, moist mucus membranes, dentition intact, no oropharyngeal lesions, neck supple, trachea midline, no LAD, no thyromegaly, no JVD Heart: +S1/S2, regular, no m/r/g Lungs: equal air entry bilaterally, no rales/rhonchi/wheezes Abd: +BS, soft, NT/ND, no masses/organomegaly/ascites Ext: warm, 2+ pulses in UE/LE bilaterally, no clubbing/cyanosis or edema Neuro: nonfocal, patient AA&O x 4, speech intact, no facial droop, moving all extremities on command with equal strength 5/5 Results & Data Results & Data Vital Signs (Past 12 Hours) Vital Signs Temp Pulse Pulse Resp BP Pulse Ox O2 Del Method 04/30/23 21:14 97 H 14 130/86 94 Room Air 04/30/23 19:09 36.6 C 111 H 19 95 Room Air Laboratory Results Laboratory Results WBC 12.18 K/ul (4.8-10.8) H 04/30/23 20:05 RBC 5.04 M/uL (4.70-6.10) 04/30/23 20:05 Hgb 15.7 g/dl (14.0-18.0) 04/30/23 20:05 Hct 46.7 % (42.0-52.0) 04/30/23 20:05 MCV 92.7 fL (80.0-100.0) 04/30/23 20:05 MCH 31.2 pg (25.0-34.0) 04/30/23 20:05 MCHC 33.6 g/dL (32.0-36.0) 04/30/23 20:05 RDW Std Deviation 42.3 fL (36.4-46.3) 04/30/23 20:05 RDW Coeff of Rani 12.3 % (11.5-14.5) 04/30/23 20:05 Plt Count 329 K/uL (130-400) 04/30/23 20:05 MPV 9.4 fL (9.4-12.4) 04/30/23 20:05 Immature Gran % (Auto) 0.6 % 04/30/23 20:05 Neut % (Auto) 94.5 % 04/30/23 20:05 Lymph % (Auto) 1.6 % 04/30/23 20:05 [place] % (Auto) 3.0 % 04/30/23 20:05 Eos % (Auto) 0.1 % 04/30/23 20:05 Baso % (Auto) 0.2 % 04/30/23 20:05 Neut # (Auto) 11.53 K/uL (1.40-6.50) H 04/30/23 20:05 Lymph # (Auto) 0.19 K/uL (1.20-3.40) L 04/30/23 20:05 [place] # (Auto) 0.36 K/uL (0.11-0.59) 04/30/23 20:05 Eos # (Auto) 0.01 K/uL (0.00-0.50) 04/30/23 20:05 Baso # (Auto) 0.02 K/uL (0.00-0.20) 04/30/23 20:05 Immature Gran # (Auto) 0.07 K/uL (0.01-0.20) 04/30/23 20:05 APTT 29 Seconds (21-31) 04/30/23 20:05 PTT Ratio 1.0 04/30/23 20:05 VBG pH 7.42 (7.36-7.41) H 04/30/23 21:10 VBG pCO2 43 mmHg (38-50) 04/30/23 21:10 VBG pO2 37 mmHg 04/30/23 21:10 VBG HCO3 28 mmol/L 04/30/23 21:10 VBG O2 Saturation < 60.0 % 04/30/23 21:10 VBG Base Excess 2.9 mEq/L 04/30/23 21:10 Sodium 135 mmol/L (136-145) L 04/30/23 20:05 Potassium 4.1 mmol/L (3.5-5.1) 04/30/23 20:05 Chloride 101 mmol/L (98-107) 04/30/23 20:05 Carbon Dioxide 25 mmol/L (21-32) 04/30/23 20:05 Anion Gap 9 (3-11) 04/30/23 20:05 BUN 16 mg/dl (6-23) 04/30/23 20:05 Creatinine 0.95 mg/dl (0.6-1.4) 04/30/23 20:05 Est Cr Clr Drug Dosing Not Reportable 04/30/23 20:05 Est GFR ( Amer) 88.5 ml/min 04/30/23 20:05 Est GFR (Non-Af Amer) 76.4 ml/min 04/30/23 20:05 BUN/Creatinine Ratio 16.8 (10-20) 04/30/23 20:05 Glucose 134 mg/dl (70-99(Fasting)) H 04/30/23 20:05 Calcium 9.4 mg/dl (8.6-10.3) 04/30/23 20:05 Phosphorus 2.6 mg/dl (2.5-4.9) 04/30/23 22:56 Magnesium 2.0 mg/dl (1.7-2.4) 04/30/23 20:05 Total Bilirubin 0.9 mg/dl (0.2-1.0) 04/30/23 20:05 AST 20 U/L (13-39) 04/30/23 20:05 ALT 14 U/L (7-52) 04/30/23 20:05 Alkaline Phosphatase 56 U/L (34-104) 04/30/23 20:05 Ammonia 29.0 umol/L (18-72) 04/30/23 21:10 Troponin I High Sens 77.4 pg/ml (0-20) H* D 04/30/23 22:56 Total Protein 8.0 gm/dl (6.0-8.3) 04/30/23 20:05 Albumin 4.4 gm/dl (3.4-5.0) 04/30/23 20:05 Globulin 3.6 gm/dl (2.5-4.0) 04/30/23 20:05 Albumin/Globulin Ratio 1.2 (0.9-2) 04/30/23 20:05 TSH 1.051 uIu/ml (0.300-4.500) 04/30/23 20:05 Urine Color Dark Yellow 04/30/23 22:45 Urine Appearance Clear (Clear) 04/30/23 22:45 Urine pH 6.5 (4.5-7.5) 04/30/23 22:45 Ur Specific [place] 1.025 (1.000-1.030) 04/30/23 22:45 Urine Protein Trace (Negative) H 04/30/23 22:45 Urine Glucose (UA) Negative (Negative) 04/30/23 22:45 Urine Ketones 1+ (Negative) H 04/30/23 22:45 Urine Blood Negative (Negative) 04/30/23 22:45 Urine Nitrite Negative (Negative) 04/30/23 22:45 Urine Bilirubin 1+ (Negative) H 04/30/23 22:45 Urine Urobilinogen Negative (Negative) 04/30/23 22:45 Ur Leukocyte Esterase Negative (Negative) 04/30/23 22:45 Urine WBC (Auto) 1-5 /hpf (0-5) 04/30/23 22:45 Urine RBC (Auto) 0-4 /hpf (0-4) 04/30/23 22:45 U Hyaline Cast (Auto) 1-5 /lpf (0-5) 04/30/23 22:45 U Epithel Cells (Auto) 10-20 /lpf (0-5) H 04/30/23 22:45 Urine Bacteria (Auto) Negative (Negative) 04/30/23 22:45 Adenovirus (PCR) Not Detected (NotDetected) 04/30/23 20:05 B. pertussis DNA (PCR) Not Detected (NotDetected) 04/30/23 20:05 B.parapertussis DNA PCR Not Detected (NotDetected) 04/30/23 20:05 C. pneumoniae DNA (PCR) Not Detected (NotDetected) 04/30/23 20:05 Coronavirus OC43 (PCR) Not Detected (NotDetected) 04/30/23 20:05 Coronavirus HKU1 (PCR) Not Detected (NotDetected) 04/30/23 20:05 Coronavirus 229E (PCR) Not Detected (NotDetected) 04/30/23 20:05 SARS-CoV-2 (PCR) Not Detected (NotDetected) 04/30/23 20:05 Coronavirus NL63 (PCR) Not Detected (NotDetected) 04/30/23 20:05 Human Metapneumovir PCR Not Detected (NotDetected) 04/30/23 20:05 Influenza Type A (PCR) Not Detected (NotDetected) 04/30/23 20:05 Influenza Type B (PCR) Not Detected (NotDetected) 04/30/23 20:05 M. pneumoniae (PCR) Not Detected (NotDetected) 04/30/23 20:05 Parainfluenza 1 (PCR) Not Detected (NotDetected) 04/30/23 20:05 Parainfluenza 2 (PCR) Not Detected (NotDetected) 04/30/23 20:05 Parainfluenza 3 (PCR) Not Detected (NotDetected) 04/30/23 20:05 Parainfluenza 4 (PCR) Not Detected (NotDetected) 04/30/23 20:05 RSV (PCR) Not Detected (NotDetected) 04/30/23 20:05 Entero/Rhino (PCR) Not Detected (NotDetected) 04/30/23 20:[address] 04/30/23 21:04 Exam(s): CT HEAD Without Contrast EXAM: CT Head Without Intravenous Contrast CLINICAL HISTORY: Reason for exam: AMS. TECHNIQUE: Axial computed tomography images of the head/brain without intravenous contrast. CTDI is 36.86 mGy and DLP is 625.8 mGy-cm. Automated exposure control was utilized for the study. A dose lowering technique was utilized adhering to the principles of ALARA. COMPARISON: Comparison made to prior noncontrast head CT from November 29, 2022. FINDINGS: Brain: Unremarkable. No hemorrhage. Advanced nonspecific white matter changes. No edema. Ventricles: Moderate ventriculomegaly. Bones/joints: Unremarkable. No acute fracture. Soft tissues: Bilateral lens replacements. Sinuses: Chronic ethmoid sinusitis. No acute sinusitis. Mastoid air cells: Unremarkable as visualized. No mastoid effusion. IMPRESSION: No evidence of acute intracranial pathology. Electronically signed by: Deidra Corcoran MD 05/01/23 00:01 AM PG Care Time/CCT Total # of Minutes Spent Total Time Spent with Patient: Total time spent is greater than 50% in coordination of care (as documented) at patient's floor/unit and/or counseling patient: Coding Level of Care Code 91231 INT INP/OBS CARE 2/55MIN Diagnoses Diarrhea R19.7 Diarrhea type: unspecified type Elevated troponin I level R79.89 Weakness R53.1 Hypertension I10 (1) Diarrhea Diarrhea type: unspecified type Qualified Code(s): R19.7 - Diarrhea, unspecified
[2023-04-30 23:21] LABS: Appearance Urine Clear (Clear); Bacteria Urine Automated Negative (Negative); Blood Urine Negative (Negative); Color Urine Dark Yellow; Glucose Urine UA Negative (Negative); Ketones Urine 1+ (Negative); Leukocyte Esterase Urine Negative (Negative); Nitrite Urine Negative (Negative); Protein Urine Trace (Negative); RBC Urine Automated 0-4 /hpf (0-4); Specific Gravity Urine 1.025 (1.000-1.030); Urobilinogen Urine Negative (Negative); pH Urine 6.5 (4.5-7.5)
[2023-04-30 23:28] LABS: Bilirubin Urine 1+ (Negative)
[2023-04-30 23:54] LABS: Phosphorus 2.6 mg/dl (2.5-4.9)
--- NOTE | 2023-05-01 00:03 | CT Scan Report ---
Exam(s): CT HEAD Without Contrast EXAM: CT Head Without Intravenous Contrast CLINICAL HISTORY: Reason for exam: AMS. TECHNIQUE: Axial computed tomography images of the head/brain without intravenous contrast. CTDI is 36.86 mGy and DLP is 625.8 mGy-cm. Automated exposure control was utilized for the study. A dose lowering technique was utilized adhering to the principles of ALARA. COMPARISON: Comparison made to prior noncontrast head CT from November 29, 2022. FINDINGS: Brain: Unremarkable. No hemorrhage. Advanced nonspecific white matter changes. No edema. Ventricles: Moderate ventriculomegaly. Bones/joints: Unremarkable. No acute fracture. Soft tissues: Bilateral lens replacements. Sinuses: Chronic ethmoid sinusitis. No acute sinusitis. Mastoid air cells: Unremarkable as visualized. No mastoid effusion. IMPRESSION: No evidence of acute intracranial pathology. Electronically signed by: Deidra Corcoran MD 05/01/23 00:01 AM
[2023-05-01 00:06] LABS: Troponin I High Sensitivity 77.4 pg/ml (0-20)
[2023-05-01] MEDS ORDERED: ONDANSETRON INJ 2 MG/ML 2 ML VIAL IV PRN (00:33)
[2023-05-01] MEDS ORDERED: ACETAMINOPHEN 325 MG TAB PO PRN (00:33)
--- OUTSIDE RECORDS SUMMARY | 2023-05-01 00:38 | External Medical Summary | Continuity of Care Document ---
Author Name Unknown Organization [address] Address [address] [id number] Care Team Providers Care Supervisor Enrobing Name Role Phone Jewell Valdez Primary Care Physician [phone] Encounter [facility] [id number] Date(s): 04/04/23 - 04/04/23 [facility] 1849 [facility] 207 [facility] [address] [address] [phone] Encounter Diagnosis Somatic dysfunction of rib(Discharge Diagnosis) - 04/04/23 Somatic dysfunction of head region(Discharge Diagnosis) - 04/04/23 Somatic dysfunction of cervical region(Discharge Diagnosis) - 04/04/23 Physical deconditioning(Discharge Diagnosis) - 04/04/23 Pelvic somatic dysfunction(Discharge Diagnosis) - 04/04/23 Dizziness(Discharge Diagnosis) - 04/04/23 Lower extremity weakness(Discharge Diagnosis) - 04/04/23 Discharge Disposition: Home or Self Care Attending Physician: MD Momo, Rupa Santos Allergies, Adverse Reactions, Alerts No Known Medication Allergies Assessment and Plan Extracted from: Title:OMT/ Dizziness/ Weakness Author:DO Lam G ary Date:04/04/23 1.Somatic dysfunction of r ib OMT Treatment Method Response Y N ART BLT CR CS DIR FPR HVLA IND INR LAS ME MFR ST VIS OTH R I U W Head & Face x x x Neck x x x x Thoracic T1-4 x x x x T5-9 T10-12 Ribs x x x Lumbar Sacrum Pelvis x x Abdomen/Other Upper Extremity Lower Extremity The above OMT modalities used on the patient and he tolerated the procedures well. The patient has been educated about the possibility of increased soreness for the first 1-2 days post treatment. Patient should use ice for the first 24 hours post OMT then continue to use heat prn for comfort and pain relief. Patient should drink generous amounts (~2 L) of water following treatment for the rest of the day. Patient should call immediately if any worsening symptoms develop including, but not limited to, weakness, numbness, or other neurological symptoms. Follow-up in 6 to 8 weeks for additional OMT treatment. 2.Somatic dysfunction of head region 3.Somatic dysfunction of cervical region 4.Physical deconditioning 5.Pelvic somatic dysfunction 6.Dizziness Chronic condition exacerbated/progressive/side effects of treatment Goal:Resolution Plan: Unfortunately, his vertigo has not seem toresolve and is causing risk to increasefalls. For this reason, I do feela visit to neurology is warranted. I would have expected in the past 5 months that hisweakness anddizziness would have improvedgiven his physical therapy and OMT sessionsbut it simplyhas not returned him back to baseline. When he had a stroke alert in the emergency department,only CT imaging was done which did not showanyabnormality. He does not show anyfocal neurologic deficits, however, an MRI may still be warrantedbut will defer to neurology for now. Recheck in 6 to 8 weeks. 7.Lower extremity weakness See above Medications hydroCHLOROthiazide Start: 12/30/22 8:11:00 EDT Start Date: 12/30/22 Status: Ordered Mental Status 04/04/23 Barriers to Learning one year None evide nt Mandatory Health Literacy Documentation Yes Health Literacy Communication Barriers N ever Primary Language Portuguese Problem List Condition Confirmation Course Effective Dates Status H ealth Status Informant Somatic dysfunction of cervical region Confirmed Active Physical deconditioning Confirmed Active Somatic dysfunction of head region Confirmed Active Pelvic somatic dysfunction Confirmed Active Somatic dysfunction of rib Confirmed Active Tobacco user Confirmed Active Diagnosis Diagnosis Type Effective Dates Health Status Clinical Service Informant Dizziness Discharge Diagnosis 04/04/23 Lower extremity weakness Discharge Diagnosis 04/04/23 Somatic dysfunction of rib Discharge Diagnosis 04/04/23 Somatic dysfunction of cervical region Discharge Diagnosis 04/04/23 Somatic dysfunction of head region Discharge Diagnosis 04/04/23 Physical deconditioning Discharge Diagnosis 04/04/23 Pelvic somatic dysfunction Discharge Diagnosis 04/04/23 Vital Signs Most recent to oldest [Reference Range]: 1 Heart Rate 90 bpm (04/04/23 2:28 PM) Respiratory Rate 12 br/min (04/04/23 2:28 PM) Blood Pressure 178/82mmHg (04/04/23 2:28 PM) Cuff Pulse Pressure 96 mmHg (12/4/23 2:28 PM) Social History Social History Type Response Smoking Status Never smoked cigaret hermila Sex Male FCM Outpt Note * MD Momo, Rupa Santos: MODIFY DO Lam Gary: PERFORM Event Display: FCM Outpt Note Authored Date: [id number] Chief Complaint OMT? vertigo History of Present Illness Patient is a 77-year-old male with a past medical history of vertigo presents to the clinic for OMTin regards to vertigo. Patient reports that his last visit he did have improvement in his dizziness and he continues to go to physical therapy which is providing mild improvement as well. Complains that he is still feeling weak in his lower extremities however it is better than it was5 monthsago when he initially went to the emergency department. Otherwise has no new complaints this appointment. He was able to come to this appointment on his own without his being present. Unfortunately, despiteOMT and PT, patient still continues to complain ofvertigoandhis lower extremity is "giving out". Prior to 5 months ago, this was not an issuebut he does not seem to begetting back to his baseline. Denies any palpitations or chest pain. States that a couple weeks ago, he found himselffalling into a miller in his yard because his "legs gave out". He feltroom spinning sensation prior to this fall. Fortunately, he did not sustainan injuryas his fall was broken by the bushes. Review of Systems Per HPI Physical Exam Vitals & Measurements HR:90(Monitored) RR:12 BP:178/82 SpO2:92% PHQ2 Data(Data Documented on:04/04/2023 14:28) Emotional health assessment NEGATIVE Jane to severity scale 0=No SD or background (BG levels) 2=obvious TART (jaye R&T), +/-symptoms 1= more than BG levels, minor TART 3=jane lesions, symptomatic, R&T stand out Methods Used For Examination Region evaluated Severity Somatic Dysfunction and Other Systems All T A R T 0 1 2 3 x Head & Face x L Lateral Torsion x Neck x C3-C6 N SrRl x Thoracic T1-4 x T2-T9 N Sr Rl T5-9 T10-12 x Ribs Elevated R first rib Lumbar Sacrum/Pelvis x Pelvis/Innominate R posterior innominate, R anatomic short leg Abdomen/Other R Upper Extremity L Upper Extremity R Lower Extremity L Lower Extremity Assessment/Plan 1.Somatic dysfunction of rib OMT Treatment Method Response Y N ART BLT CR CS DIR FPR HVLA IND INR LAS ME MFR ST VIS OTH R I U W Head & Face x x x Neck x x x x Thoracic T1-4 x x x x T5-9 T10-12 Ribs x x x Lumbar Sacrum Pelvis x x Abdomen/Other Upper Extremity Lower Extremity The above OMT modalities used on the patient and he tolerated the procedures well. The patient has been educated about the possibility of increased soreness for the first 1-2 days post treatment. Patient should use ice for the first 24 hours post OMT then continue to use heat prn for comfort andpain relief. Patient should drink generous amounts (~2 L) of water following treatment for the restof the day. Patient should call immediately if any worsening symptoms develop including, but not limited to, weakness, numbness, or other neurological symptoms. Follow-up in 6 to 8 weeks for additional OMT treatment. 2.Somatic dysfunction of head region 3.Somatic dysfunction of cervical region 4.Physical deconditioning 5.Pelvic somatic dysfunction 6.Dizziness Chronic condition exacerbated/progressive/side effects of treatment Goal:Resolution Plan: Unfortunately, his vertigo has not seem toresolve and is causing risk to increasefalls.For this reason, I do feela visit to neurology is warranted. I would have expected in the past 5 months that hisweakness anddizziness would have improvedgiven his physical therapy and OMT se ssionsbut it simplyhas not returned him back to baseline. When he had a stroke alert in the emergency department,only CT imaging was done which did not showanyabnormality. He does not show anyfocal neurologic deficits, however, an MRI may still be warrantedbut will defer to neurology for now. Recheck in 6 to 8 weeks. 7.Lower extremity weakness See above Attestation Attestation -I discussed and evaluated this patient with Dr. Lam. He had recent hospital admission, during which extensive work up was carried out. We discussed with him the need to stay well hydrated & wear compression stockings. However, would agree that there is significant concern for more serious neurological pathology. The assessment and plan was developed with him and carriedout at my direction. I have read and agree with his note. Problem List/Past Medical History Ongoing Pelvic somatic dysfunction Physical deconditioning Somatic dysfunction of cervical region Somatic dysfunction of head region Somatic dysfunction of rib Tobacco user Medications hydroCHLOROthiazide Allergies No Known Medication Allergies Social History Smoking Status Never smoked cigarettes Recommendations Health Maintenance Pending(in the next year) OverDue Adult Influenza Vaccine due10/30/22and every 1year Due Adult COVID-19 Vaccination due04/04/23Unknown Frequency Adult Tdap/Td Vaccine due04/04/23Unknown Frequency Body Mass Index due04/04/23Unknown Frequency Hepatitis C Screening due04/04/23One-time only Lipid Screening due04/04/23Unknown Frequency Medicare Annual Wellness Visit due04/04/23and every 1year Pneumococcal Vaccine Older Adults due04/04/23One-time only Shingles Vaccine due04/04/23One-time only Satisfied(in the past 1 year) There are no satisfied recommendations within the defined date range Electronic Signature on File Electronically Reviewed/Signed by: Ed Lam DO Author Signature Dt/Tm:04/04/2023 09:07 PM Resident Department of Family Medicine Electronically Reviewed/Signed by: Rupa Brar MD Cosigner Signature Dt/Tm: 04/05/2023 08:28 PM Strategy Execution Consultant [facility] [address], [address] [place] [address] GF Patient Care team information Care Team Personnel Name: MD Valdez Tamar Position: Referring Member Role: Primary Care Provider Address: Address: [address] [place] [id number] Name: Venu Keating Position: HIS Supervisor_P Member Role: HIS Lifetime Care Team Related Persons Name: JULITA FLOR Address: [place] Address: home [address] [place] [id number]
--- OUTSIDE RECORDS SUMMARY | 2023-05-01 00:38 | External Medical Summary | Continuity of Care Document ---
Author Name Unknown Organization [facility] 1850 [facility] 207 Address [address] [phone] Care Team Providers Care Sales Porter Name Role Phone Jewell Valdez Primary Care Physician [phone] [id number] Date[facility]s): 02/15/23 - 02/15/23 [facility] 1849 [facility] 207 [facility] [address] [address] [phone] Encounter Diagnosis Somatic dysfunction of head region(Discharge Diagnosis) - 02/15/23 Somatic dysfunction of cervical region(Discharge Diagnosis) - 02/15/23 Pelvic somatic dysfunction(Discharge Diagnosis) - 02/15/23 Physical deconditioning(Discharge Diagnosis) - 02/15/23 Discharge Disposition: Home or Self Care Attending Physician: DO Lopez Gretchen Elizabeth Allergies, Adverse Reactions, Alerts No Known Medication Allergies Medications hydroCHLOROthiazide Start: 12/30/22 8:11:00 EDT Start Date: 12/30/22 Status: Ordered Mental Status 02/15/23 Barriers to Learning one year None evide nt Mandatory Health Literacy Documentation Yes Health Literacy Communication Barriers N ever Primary Language Nigerian Problem List Condition Confirmation Course Effective Dates Status Health St atus Informant Tobacco user Confirmed Active Diagnosis Diagnosis Type Effective Dates Health Status Clinical Service Informant Pelvic somatic dysfunction Discharge Diagnosis 02/15/23 Physical deconditioning Discharge Diagnosis 02/15/23 Somatic dysfunction of cervical region Discharge Diagnosis 02/15/23 Somatic dysfunction of head region Discharge Diagnosis 02/15/23 Vital Signs Most recent to oldest [Reference Range]: 1 Heart Rate 55 bpm (02/15/23 12:42 PM) Respiratory Rate 12 br/min (02/15/23 12:42 PM) Blood Pressure 154/98mmHg (02/15/23 12:42 PM) Cuff Pulse Pressure 56 mmHg (02/15/23 12:42 PM) Social History Social History Type Response Smoking Status Never smoked cigaret hermila Sex Male Patient Care team information Care Team Personnel Name: MD Valdez Tamar Position: Referring Member Role: Primary Care Provider Address: Address: [address] [place] [address] Name: Venu Keating Position: HIS Supervisor_P Member Role: HIS Lifetime Care Team Related Persons Name: JULITA FLOR Address: [place] Address: home [address] [address]
--- OUTSIDE RECORDS SUMMARY | 2023-05-01 00:39 | External Medical Summary | Continuity of Care Document ---
Author Name Unknown Organization [facility] 1849 [facility] 207 Address [address] [phone] Care Team Providers Care Risk Control Field Representative Name Role Phone Jewell Valdez Primary Care Physician [phone] [id number] Date(s): 12/30/22 - 12/30/22 [facility] 1849 [facility] 207 [facility] [address] [address] [phone] Encounter Diagnosis Ambulatory dysfunction(Discharge Diagnosis) - 12/30/22 Physical deconditioning(Discharge Diagnosis) - 12/30/22 Cervical somatic dysfunction(Discharge Diagnosis) - 12/30/22 Somatic dysfunction of thoracic region(Discharge Diagnosis) - 12/30/22 Rib cage region somatic dysfunction(Discharge Diagnosis) - 12/30/22 Discharge Disposition: Home or Self Care Attending Physician: MD Momo, Rupa Santos Medications hydroCHLOROthiazide Start: 12/30/22 8:11:00 EDT Start Date: 12/30/22 Status: Ordered Mental Status 12/30/22 Barriers to Learning one year None evide nt Mandatory Health Literacy Documentation Yes Health Literacy Communication Barriers N ever Primary Language Burundian Problem List Condition Confirmation Course Effective Dates Status Health St atus Informant Tobacco user Confirmed Active Diagnosis Diagnosis Type Effective Dates Health Status Clinical Service Informant Ambulatory dysfunction Discharge Diagnosis 12/30/22 Non-Specified Physical deconditioning Discharge Diagnosis 12/30/22 Non-Specified Somatic dysfunction of thoracic region Discharge Diagnosis 12/30/22 Non-Specified Cervical somatic dysfunction Discharge Diagnosis 12/30/22 Non-Specified Rib cage region somatic dysfunction Discharge Diagnosis 12/30/22 Non-Specified Vital Signs Most recent to oldest [Reference Range]: 1 Patient Weight 93 kg (12/30/22 8:13 AM) Temperature [36.5-37.9 DegC] 37 DegC (12/30/22 8:13 AM) Heart Rate 48 bpm (12/30/22 8:13 AM) Respiratory Rate 22 br/min (12/30/22 8:13 AM) Blood Pressure 136/78mmHg (12/30/22 8:13 AM) Cuff Pulse Pressure 58 mmHg (12/30/22 8:13 AM) Social History Social History Type Response Smoking Status Never smoked cigaret hermila Sex Male Patient Care team information Care Team Personnel Name: MD Valdez Tamar Position: Referring Member Role: Primary Care Provider Address: Address: [address] [place] [id number] [place] Care Team Related Persons Name: JULITA FLOR Address: [place] Address: home [address] [place] [id number]
[2023-05-01] MEDS ORDERED: LACTATED RINGER'S 1,000 ML IV SCH (01:00)
[2023-05-01 06:14] LABS: Adenovirus F 40/41 PCR Not Detected (NotDetected); Astrovirus PCR Not Detected (NotDetected); Campylobacter PCR Not Detected (NotDetected); Cryptosporidium PCR Not Detected (NotDetected); Cyclospora cayetanensis PCR Not Detected (NotDetected); Entamoeba histolytica PCR Not Detected (NotDetected); Enteroaggregative E.coli(EAEC) Not Detected (NotDetected); Enteropathogenic E.coli (EPEC) Not Detected (NotDetected); Enterotoxigenic E.coli (ETEC) Not Detected (NotDetected); Giardia lamblia PCR Not Detected (NotDetected); Plesiomonas shigelloides PCR Not Detected (NotDetected); Rotavirus A PCR Not Detected (NotDetected); Salmonella PCR Not Detected (NotDetected); Sapovirus PCR Not Detected (NotDetected); Shiga-like Toxin E.coli (STEC) Not Detected (NotDetected); Shigella/Enteroinvasive E.coli Not Detected (NotDetected); Vibrio cholerae PCR Not Detected (NotDetected); Vibrio species PCR Not Detected (NotDetected); Yersinia enterocolitica PCR Not Detected (NotDetected)
[2023-05-01 06:39] LABS: Norovirus GI/GII PCR DETECTED (NotDetected)
--- NOTE | 2023-05-01 06:59 | XRay Report ---
SINGLE VIEW CHEST CLINICAL HISTORY: Illness. Generalized weakness. FINDINGS: An AP upright chest radiograph is compared to chest x-ray and chest CT dated 11/29/2022. The heart is mildly enlarged. The pulmonary vasculature is noncongested. There is mild bibasilar scarrin g/atelectasis. The lungs and pleural spaces are otherwise clear. No pneumothorax is seen. The skeleta l structures are osteopenic. The bony thorax is grossly intact. Arthritic change is noted in the righ t shoulder. IMPRESSION: Cardiomegaly with no active disease in the chest. ACT 112: Negative or not required by law. Electronically signed by: Oliver Portillo M.D. 05/01/2023 6:58 AM
[2023-05-01 07:20] LABS: Hematocrit (blood only) 39.6 % (42.0-52.0); Hemoglobin 13.4 g/dl (14.0-18.0); Mean Corpuscular Hemoglobin 31.6 pg (25.0-34.0); Mean Corpuscular Hgb Conc 33.8 g/dL (32.0-36.0); Mean Corpuscular Volume 93.4 fL (80.0-100.0); Mean Platelet Volume 9.3 fL (9.4-12.4); Platelet Count 260 K/uL (130-400); RDW Coefficient of Variation 12.4 % (11.5-14.5); RDW Standard Deviation 42.6 fL (36.4-46.3); Red Blood Count 4.24 M/uL (4.70-6.10); White Blood Count 7.28 K/ul (4.8-10.8)
[2023-05-01 07:47] LABS: BUN Creatinine Ratio 19.8 (10-20); Calcium 8.5 mg/dl (8.6-10.3); Est GFR (African American) 96.3 ml/min; Est GFR (Non-African American) 83.1 ml/min; Potassium 3.9 mmol/L (3.5-5.1)
[2023-05-01 08:08] LABS: Troponin I High Sensitivity 54.6 pg/ml (0-20)
[2023-05-01] MEDS: TRAVOPROST Z 0.004% OPH SOLN 2.5 ML BTL OPB SCH (09:11)
[2023-05-01] MEDS: ASPIRIN 81 MG ECTAB PO SCH (09:12)
--- NOTE | 2023-05-01 09:14 | Electrocardiogram Report ---
Test Reason : Blood Pressure : / mmHG Vent. Rate : 106 BPM Atrial Rate : 106 BPM P-R Int : 232 ms QRS Dur : 082 ms QT Int : 320 ms P-R-T Axes : 051 014 008 degrees QTc Int : 425 ms Sinus tachycardia with 1st degree A-V block Left atrial enlargement Possible Old Inferior infarct (cited on or before 29-NOV-2022) Diffuse Minor Nonspecific T wave abnormality Abnormal ECG When compared with ECG of 29-NOV-2022 18:37, Vent. rate has increased BY 35 BPM Confirmed by Berry Goode ([id number]) on 05/01/2023 9:14:26 AM Referred By: REFERRED SELF Confirmed By:Berry Goode
--- NOTE | 2023-05-01 09:29 | XCELERA ---
[id number] \\[id number]_[id number]}___[id number]
--- NOTE | 2023-05-01 22:24 | Hospitalist Progress Note ---
Date of Service May 01, 2023 Assessment & Plan (1) Diarrhea: Plan: DIarrhea secondary to Norovirus Possible source of weakness, diarrhea leading to dehydration. Patient is uncertain how long he has had the diarrhea. He thinks that it may have started after [place]. He has at least one watery BM daily. No blood reported -Improved on 05/01, will continue to monitor. -IVF and electrolyte repletion (2) Elevated troponin I level: Plan: Patient denies chest pain or palpitations. Troponin 64.3 --> 77.4. Some nonspecific changes on EKG. No ST elevation. -Telemetry monitoring -Trend troponin -2D echo completed (3) Weakness: Plan: Etiology unclear. Electrolytes are largely normal, no obvious source of infection - UA, CXR, respiratory biofire panel NEGATIVE. Stool PCR and c. diff pending. Suspect dehydration is at least contributing in part -IVF -PT/OT evaluation (4) Hypertension: Admission and Anticipated Discharge Date Admission Date: April 30, 2023 Subjective Son at bedside, reports only one bowel movement today and it had some substance. Son reports patient remains weak. Review of Systems Review of Systems: All systems reviewed & are unremarkable except as noted in HPI & below Physical Exam Physical Exam: General: NAD Skin: warm, dry, intact, no rashes or lesions HEENT: NC/AT, PERRL, EOMI Heart: +S1/S2, regular, no m/r/g Lungs: equal air entry bilaterally, no rales/rhonchi/wheezes Abd: +BS, soft, NT/ND, no masses/organomegaly/ascites Ext: warm, 2+ pulses in UE/LE bilaterally, no clubbing/cyanosis or edema Results & Data Results & Data Vital Signs (Past 12 Hours) Vital Signs Pulse Resp BP 05/01/23 21:00 72 05/01/23 18:30 67 21 05/01/23 18:00 60 17 05/01/23 17:30 89 17 05/01/23 17:00 68 20 05/01/23 16:35 143/97 H 05/01/23 16:35 77 19 05/01/23 16:30 64 24 05/01/23 16:00 82 22 05/01/23 15:30 61 19 05/01/23 15:00 60 16 05/01/23 14:30 66 18 05/01/23 14:00 59 L 17 05/01/23 13:30 60 17 05/01/23 13:00 64 23 05/01/23 12:30 66 19 05/01/23 12:00 64 22 05/01/23 11:32 81 17 PG Care Time/CCT Total # of Minutes Spent Total Time Spent with Patient: Total time spent is greater than 50% in coordination of care (as documented) at patient's floor/unit and/or counseling patient: Coding Level of Care Code 69035 SUB INP/OBS CARE 2/35MIN Diagnoses Diarrhea R19.7 Diarrhea type: unspecified type Elevated troponin I level R79.89 Weakness R53.1 Hypertension I10 (1) Diarrhea Diarrhea type: unspecified type Qualified Code(s): R19.7 - Diarrhea, unspecified
[2023-05-01] MEDS ORDERED: amLODIPine BESYLATE 5 MG TAB PO ONE (23:46)
[2023-05-02] MEDS: ASPIRIN 81 MG ECTAB PO SCH (08:56)
[2023-05-02] MEDS: TRAVOPROST Z 0.004% OPH SOLN 2.5 ML BTL OPB SCH (08:58)
[2023-05-02 09:44] LABS: Hematocrit (blood only) 39.3 % (42.0-52.0); Hemoglobin 13.3 g/dl (14.0-18.0); Mean Corpuscular Hemoglobin 31.1 pg (25.0-34.0); Mean Corpuscular Hgb Conc 33.8 g/dL (32.0-36.0); Mean Platelet Volume 9.3 fL (9.4-12.4); Platelet Count 268 K/uL (130-400); RDW Coefficient of Variation 12.1 % (11.5-14.5); RDW Standard Deviation 40.9 fL (36.4-46.3); Red Blood Count 4.27 M/uL (4.70-6.10); White Blood Count 7.29 K/ul (4.8-10.8)
[2023-05-02 09:59] LABS: C Reactive Protein 5.12 mg/dl (0-0.5); Calcium 8.6 mg/dl (8.6-10.3); Est GFR (African American) 99.2 ml/min; Est GFR (Non-African American) 85.6 ml/min; Potassium 3.6 mmol/L (3.5-5.1)
--- NOTE | 2023-05-02 13:36 | Hospitalist Progress Note ---
Date of Service May 02, 2023 Assessment & Plan (1) Diarrhea: Plan: Diarrhea secondary to Norovirus Possible source of weakness, diarrhea leading to dehydration. Patient is uncertain how long he has had the diarrhea, may have started after [place], having at least one watery BM daily. No blood reported -BC: NG24hr -By afternoon of 05/02 has had 4 episodes of diarrhea -S/p 1L LR, tolerating oral intake will hold off on additional IVF for now (2) Elevated troponin I level: Plan: Patient denies chest pain or palpitations. Troponin 64.3 --> 77.4. Some nonspecific changes on EKG. No ST elevation. -Troponin downtreding, peak 77 -Echo: EF 55-60%, no wall motional abnormalities, mild LVH (3) Weakness: Plan: Etiology unclear. Electrolytes are largely normal, no obvious source of infection - UA, CXR, respiratory biofire panel NEGATIVE. Stool PCR and c. diff pending. Suspect dehydration is at least contributing in part -PT/OT recommending inpatient rehab (4) Hypertension: Plan: Triamterene-HCTZ listed on last PCP note and discharge summary, however patient reported not taking on med rec. -Blood pressure significantly elevated on admission and given dose of amlodipine, since then pressures have improved. -Will continue to monitor to determine if needs BP medication, however, would not restart HCTZ given symptoms likely currently exacerbated by dehydration. Plan Dispo: continued inpatient stay, CM for placement updated by phone today, 05/02/2023 Admission and Anticipated Discharge Date Admission Date: April 30, 2023 Supervising Physician Co-Signing Physician Notes Attending Attestation - Chart reviewed, care plan d/w PAN Estevez. I agree with the centeno components of her documentation. Oswald Keyes MD Subjective 0900 - Patient seen lying in bed, reports still being groggy for the morning and not a morning person. Denies any abdominal pain, nausea or vomiting. No bowel movement yet today. Denies CP or SOB. Relevaluated later this afternoon, 1pm. Patient unsure if he is willing to go to inpatient rehab and asked me to speak with his , Fariba. I called and spoke with her and she is agreeable to placement. Delon also tells me that he has not had any further diarrhea, but TYSON Goode reported to be 4 loose stools, including one episode of incontience. Tele - SR 60-70s, 1st degree AV block Review of Systems Review of Systems: All systems reviewed & are unremarkable except as noted in Subjective Physical Exam Physical Exam: General: WN/WD, NAD, lying in bed, VS as above Resp: normal respiratory effort, lungs clear to auscultation CV: RRR, no murmur, Abd: normal bowel sounds, non tender, no hepatosplenomegaly Extremities: Moves all extremities, no edema Results & Data Results & Data Vital Signs (Past 12 Hours) Vital Signs Temp Pulse Pulse Resp BP BP Pulse Ox 05/02/23 11:47 36.5 C 58 L 20 153/77 H 97 05/02/23 08:00 05/02/23 07:52 37.0 C 76 20 160/85 H 96 05/02/23 07:00 65 05/02/23 03:41 163/83 H 05/02/23 03:11 36.5 C 60 18 97 O2 Del Method 05/02/23 11:47 Room Air 05/02/23 08:00 Room Air 05/02/23 07:52 Room Air 05/02/23 07:00 05/02/23 03:41 05/02/23 03:11 Room Air Laboratory Results CBC and chemistry reviewed PG Care Time/CCT Total # of Minutes Spent Total Time Spent with Patient: Total time spent is greater than 50% in coordination of care (as documented) at patient's floor/unit and/or counseling patient: Coding Level of Care Code 38230 SUB INP/OBS CARE 2/35MIN Diagnoses Diarrhea R19.7 Diarrhea type: unspecified type Elevated troponin I level R79.89 Weakness R53.1 Hypertension I10 (1) Diarrhea Diarrhea type: unspecified type Qualified Code(s): R19.7 - Diarrhea, unspecified
[2023-05-03 10:35] LABS: Hematocrit (blood only) 39.1 % (42.0-52.0); Hemoglobin 13.4 g/dl (14.0-18.0); Mean Corpuscular Hemoglobin 31.3 pg (25.0-34.0); Mean Corpuscular Hgb Conc 34.3 g/dL (32.0-36.0); Mean Corpuscular Volume 91.4 fL (80.0-100.0); Mean Platelet Volume 9.7 fL (9.4-12.4); Platelet Count 296 K/uL (130-400); RDW Coefficient of Variation 12.2 % (11.5-14.5); RDW Standard Deviation 40.7 fL (36.4-46.3); Red Blood Count 4.28 M/uL (4.70-6.10); White Blood Count 7.29 K/ul (4.8-10.8)
[2023-05-03 10:47] LABS: BUN Creatinine Ratio 13.6 (10-20); C Reactive Protein 3.67 mg/dl (0-0.5); Calcium 8.5 mg/dl (8.6-10.3); Creatinine Clr Calc Pharmacy 78.2 ml/min; Est GFR (African American) 95.4 ml/min; Est GFR (Non-African American) 82.3 ml/min; Potassium 3.3 mmol/L (3.5-5.1)
[2023-05-03] MEDS ORDERED: POTASSIUM CHLORIDE CRTAB 20 MEQ TABCR PO STA (10:59)
[2023-05-03] MEDS: TRAVOPROST Z 0.004% OPH SOLN 2.5 ML BTL OPB SCH (11:40)
[2023-05-03] MEDS: ASPIRIN 81 MG ECTAB PO SCH (11:42)
[2023-05-03] MEDS ORDERED: COUGH DROP (SUGAR FREE) LOZ 24 LOZ/1 BOX BUCCAL ONE (13:04)
--- NOTE | 2023-05-03 14:09 | Hospitalist Progress Note ---
Date of Service May 03, 2023 Assessment & Plan (1) Diarrhea: Plan: Diarrhea secondary to Norovirus Possible source of weakness, diarrhea leading to dehydration. Patient is uncertain how long he has had the diarrhea, may have started after [place], having at least one watery BM daily. No blood reported -BC: NG48hr -Diarrhea improving - last documented 05/02 afternoon -K 3.3, likely secondary to diarrhea, replaced orally. Recheck AM -S/p 1L LR, tolerating oral intake will hold off on additional IVF for now (2) Elevated troponin I level: Plan: Patient denies chest pain or palpitations. Troponin 64.3 --> 77.4. Some nonspecific changes on EKG. No ST elevation. -Troponin downtreding, peak 77 -Echo: EF 55-60%, no wall motional abnormalities, mild LVH (3) Weakness: Plan: Etiology unclear. Electrolytes are largely normal, no obvious source of infection - UA, CXR, respiratory biofire panel NEGATIVE. Stool PCR and c. diff pending. Suspect dehydration is at least contributing in part -PT/OT recommending inpatient rehab (4) Hypertension: Plan: Triamterene-HCTZ listed on last PCP note and discharge summary, however patient reported not taking on med rec. -Blood pressure significantly elevated on admission and given dose of amlodipi ne, since then pressures have improved. -Will continue to monitor to determine if needs BP medication, however, would not restart HCTZ given symptoms likely currently exacerbated by dehydration. Plan Dispo: continued inpatient stay, CM for placement - per documentation patient refusing inpatient rehab, in that case would recommend home health with 24 hour supervision Admission and Anticipated Discharge Date Admission Date: May 03, 2023 Supervising Physician Co-Signing Physician Notes Attending Attestation - Chart reviewed, care plan d/w PAN Estevez. I agree with the centeno components of her documentation. Oswald Keyes MD Subjective Patient seen lying in bed. States that he has not had any further episodes of diarrhea. Denies abdominal pain. Tolerating good appetite. Denies any chest pain or shortness of breath. Discussed with patient that I spoke to his yesterday and she is agreeable for him to go to inpatient rehab, he is understanding of this plan. Tele: SR with PVCs and PACs 50-60s, 1st degree AV block Review of Systems Review of Systems: All systems reviewed & are unremarkable except as noted in Subjective Physical Exam Physical Exam: General: WN/WD, NAD, lying in bed, VS as above Resp: normal respiratory effort, lungs clear to auscultation CV: RRR, no murmur, Abd: normal bowel sounds, non tender, no hepatosplenomegaly Extremities: Moves all extremities, no edema Results & Data Results & Data Vital Signs (Past 12 Hours) Vital Signs Temp Pulse Pulse Resp BP BP Pulse Ox 05/03/23 12:38 05/03/23 11:58 36.5 C 63 20 174/92 H 97 05/03/23 07:45 63 05/03/23 07:43 37.0 C 57 L 20 163/86 H 96 05/03/23 05:04 05/03/23 04:06 36.4 C L 61 18 157/81 H 94 05/03/23 02:29 57 L O2 Del Method 05/03/23 12:38 Room Air 05/03/23 11:58 Room Air 05/03/23 07:45 05/03/23 07:43 Room Air 05/03/23 05:04 Room Air 05/03/23 04:06 Room Air 05/03/23 02:29 Laboratory Results CBC and chemistry reviewed PG Care Time/CCT Total # of Minutes Spent Total Time Spent with Patient: Total time spent is greater than 50% in coordination of care (as documented) at patient's floor/unit and/or counseling patient: Coding Level of Care Code 87460 SUB INP/OBS CARE 2/35MIN Diagnoses Diarrhea R19.7 Diarrhea type: unspecified type Elevated troponin I level R79.89 Weakness R53.1 Hypertension I10 (1) Diarrhea Diarrhea type: unspecified type Qualified Code(s): R19.7 - Diarrhea, unspecified
[2023-05-03] MEDS ORDERED: CALCIUM CARBONATE 500 MG CHEWABLE TAB PO PRN (22:32)
[2023-05-04 06:39] LABS: Hematocrit (blood only) 36.5 % (42.0-52.0); Hemoglobin 12.6 g/dl (14.0-18.0); Mean Corpuscular Hemoglobin 31.2 pg (25.0-34.0); Mean Corpuscular Hgb Conc 34.5 g/dL (32.0-36.0); Mean Corpuscular Volume 90.3 fL (80.0-100.0); Mean Platelet Volume 9.6 fL (9.4-12.4); Platelet Count 297 K/uL (130-400); RDW Coefficient of Variation 11.9 % (11.5-14.5); RDW Standard Deviation 39.3 fL (36.4-46.3); Red Blood Count 4.04 M/uL (4.70-6.10); White Blood Count 8.23 K/ul (4.8-10.8)
[2023-05-04 06:45] LABS: BUN Creatinine Ratio 12.5 (10-20); Calcium 8.5 mg/dl (8.6-10.3); Creatinine Clr Calc Pharmacy 95.6 ml/min; Est GFR (African American) 103.6 ml/min; Est GFR (Non-African American) 89.3 ml/min; Potassium 3.6 mmol/L (3.5-5.1)
[2023-05-04] MEDS: ASPIRIN 81 MG ECTAB PO SCH (08:05)
[2023-05-04] MEDS: TRAVOPROST Z 0.004% OPH SOLN 2.5 ML BTL OPB SCH (08:05)
--- NOTE | 2023-05-04 15:11 | Hospitalist Progress Note ---
Date of Service May 04, 2023 Assessment & Plan (1) Diarrhea: Plan: Diarrhea secondary to Norovirus --> Improved Possible source of weakness, diarrhea leading to dehydration. Patient is uncertain how long he has had the diarrhea, may have started after [place], having at least one watery BM daily. No blood reported -BC: NG48hr -Diarrhea improving - last documented 05/02 afternoon -K improved today, 3.6 -S/p 1L LR, tolerating oral intake no additional IVF needed (2) Elevated troponin I level: Plan: Patient denies chest pain or palpitations. Troponin 64.3 --> 77.4. Some nonspecific changes on EKG. No ST elevation. -Troponin downtreding, peak 77 -Echo: EF 55-60%, no wall motional abnormalities, mild LVH (3) Weakness: Plan: Electrolytes are largely normal, no obvious source of infection - UA, CXR, respiratory biofire panel NEGATIVE. Likely due to norovirus as above Suspect dehydration contributed as well -PT/OT recommending inpatient rehab (4) Hypertension: Plan: Triamterene-HCTZ listed on last PCP note and discharge summary, however patient reported not taking on med rec. -Blood pressure significantly elevated on admission and given dose of amlodipine, since then pressures have improved. -Will continue to monitor to determine if needs BP medication, however, would not restart HCTZ given symptoms likely currently exacerbated by dehydration. Plan Dispo: continued inpatient stay, awaiting placement. Will downgrade off Tele , [place], updated at [facility]. Admission and Anticipated Discharge Date Admission Date: May 03, 2023 Supervising Physician Co-Signing Physician Notes Attending Attestation - Chart reviewed, care plan d/w PAN Estevez. I agree with the centeno components of her documentation. Oswald Keyes MD Subjective Patient seen sitting up in bed, just finished eating lunch that his daughter in law brought for him, which he was very pleased with. Denies any further diarrhea. No Chest pain or shortness of breath. Anxious to go home, but understands he could benefit from rehab and will do what his thinks is best. Tele - PACs, 1st degree AV block, 70s Review of Systems Review of Systems: All systems reviewed & are unremarkable except as noted in Subjective Physical Exam Physical Exam: General: NAD, lying in bed, appears well VS as above Resp: normal respiratory effort, lungs clear to auscultation CV: RRR, no murmur, Abd: normal bowel sounds, non tender, no hepatosplenomegaly Extremities: Moves all extremities, no edema Results & Data Results & Data Vital Signs (Past 12 Hours) Vital Signs Temp Pulse Pulse Resp BP Pulse Ox O2 Del Method 05/04/23 13:10 64 05/04/23 12:13 36.5 C 55 L 15 153/75 H 95 Room Air 05/04/23 07:59 37.0 C 55 L 15 157/83 H 95 Room Air 05/04/23 03:16 36.4 C L 62 18 161/83 H 95 Room Air Laboratory Results CBC and chemistry reviewed PG Care Time/CCT Total # of Minutes Spent Total Time Spent with Patient: Total time spent is greater than 50% in coordination of care (as documented) at patient's floor/unit and/or counseling patient: Coding Level of Care Code 93326 SUB INP/OBS CARE 2/35MIN Diagnoses Diarrhea R19.7 Diarrhea type: unspecified type Elevated troponin I level R79.89 Weakness R53.1 Hypertension I10 (1) Diarrhea Diarrhea type: unspecified type Qualified Code(s): R19.7 - Diarrhea, unspecified
[2023-05-05] MEDS: TRAVOPROST Z 0.004% OPH SOLN 2.5 ML BTL OPB SCH (08:23)
[2023-05-05] MEDS: ASPIRIN 81 MG ECTAB PO SCH (08:23)
[2023-05-05] MEDS: amLODIPine BESYLATE 5 MG TAB PO SCH (11:19)
--- NOTE | 2023-05-05 14:55 | Hospitalist Progress Note ---
Date of Service May 05, 2023 Assessment & Plan (1) Diarrhea: Plan: Diarrhea secondary to Norovirus --> Improved Possible source of weakness, diarrhea leading to dehydration. Patient is uncertain how long he has had the diarrhea, may have started after [place], having at least one watery BM daily. No blood reported -BC: NG48hr -Diarrhea improving - last documented 05/02 afternoon -S/p 1L LR, tolerating oral intake no additional IVF needed (2) Elevated troponin I level: Plan: Patient denies chest pain or palpitations. Troponin 64.3 --> 77.4. Some nonspecific changes on EKG. No ST elevation. -Troponin downtreding, peak 77 -Echo: EF 55-60%, no wall motional abnormalities, mild LVH Likely Demand ischemia (3) Weakness: Plan: Electrolytes are largely normal, no obvious source of infection - UA, CXR, respiratory biofire panel NEGATIVE. Likely due to norovirus as above Suspect dehydration contributed as well -PT/OT recommending inpatient rehab (4) Hypertension: Plan: Triamterene-HCTZ listed on last PCP note and discharge summary, however patient reported not taking on med rec. -Blood pressure significantly elevated on admission and given dose of amlodipine, since then pressures have improved. -Patient reports he was taking his home medication, discussed switching to a different medication and does recall any BP meds that he has taken previously -Amlodipine started 05/05 Plan Dispo: continued inpatient stay, awaiting placement, medically stable Peer to Peer completed, pt denied [facility] d/t lack of medical complexity, approved for SNF Admission and Anticipated Discharge Date Admission Date: May 03, 2023 Supervising Physician Co-Signing Physician Notes Attending Attestation - Chart reviewed, care plan d/w PAN Estevez. I agree with the centeno components of her documentation. Dispo planning - will rehab at SNF; inpatient rehab at [facility] denied by his insurance. Oswald Keyes MD Subjective Patient seen sitting up in the chair today, dressed in street clothes. Much happier in his new room with less noise in the hallway. Denies having any acute complaints. No further episodes of diarrhea. Discussed blood pressure medications that he has been on in the past does not recall every being on anything before the trimetrene-HCTZ. Denies CP or SOB Review of Systems 2 Review of Systems: All systems reviewed & are unremarkable except as noted in Subjective Physical Exam Physical Exam: General: NAD, sitting in chair, appears well VS as above Resp: normal respiratory effort, lungs clear to auscultation CV: RRR, no murmur, Extremities: Moves all extremities, no edema Results & Data Results & Data Vital Signs (Past 12 Hours) Vital Signs Temp Pulse Resp BP Pulse Ox O2 Del Method 05/05/23 11:18 165/84 H 05/05/23 08:52 Room Air 05/05/23 07:44 36.8 C 65 18 169/79 H 94 Room Air PG Care Time/CCT Total # of Minutes Spent Total Time Spent with Patient: Total time spent is greater than 50% in coordination of care (as documented) at patient's floor/unit and/or counseling patient: Coding Level of Care Code 07011 SUB INP/OBS CARE 2/35MIN Diagnoses Diarrhea R19.7 Diarrhea type: unspecified type Elevated troponin I level R79.89 Weakness R53.1 Hypertension I10 (1) Diarrhea Diarrhea type: unspecified type Qualified Code(s): R19.7 - Diarrhea, unspecified
[2023-05-06] MEDS: ASPIRIN 81 MG ECTAB PO SCH (07:50)
[2023-05-06] MEDS: amLODIPine BESYLATE 5 MG TAB PO SCH (07:50)
[2023-05-06] MEDS: TRAVOPROST Z 0.004% OPH SOLN 2.5 ML BTL OPB SCH (07:51)
--- NOTE | 2023-05-06 16:39 | Hospitalist Progress Note ---
Date of Service May 06, 2023 Assessment & Plan (1) Diarrhea: Plan: Diarrhea secondary to Norovirus --> Improved Possible source of weakness, diarrhea leading to dehydration. -BC: NG48hr -Diarrhea improving - last documented 05/02 afternoon -S/p 1L LR, tolerating oral intake no additional IVF needed (2) Elevated troponin I level: Plan: Patient denies chest pain or palpitations. Troponin 64.3 --> 77.4. Some nonspecific changes on EKG. No ST elevation. -Troponin downtreding, peak 77 -Echo: EF 55-60%, no wall motional abnormalities, mild LVH Likely Demand ischemia (3) Weakness: Plan: Electrolytes are largely normal, no obvious source of infection - UA, CXR, respiratory biofire panel NEGATIVE. Likely due to norovirus as above Suspect dehydration contributed as well -PT/OT recommending inpatient rehab (4) Hypertension: Plan: Triamterene-HCTZ listed on last PCP note and discharge summary, however patient reported not taking on med rec. -Blood pressure significantly elevated on admission and given dose of am lodipine, since then pressures have improved. -Patient reports he was taking his home medication, discussed switching to a different medication and does recall any BP meds that he has taken previously -Amlodipine started 05/05 Plan Dispo: continued inpatient stay, medically stable, plan to d/c to [facility] on Tuesday. Peer to Peer completed, pt denied [facility] d/t lack of medical complexity, approved for SNF Admission and Anticipated Discharge Date Admission Date: May 03, 2023 Subjective Patient lying in bed today. More tired today, states he didn't sleep well, declines sleep aid. No further diarrhea but did have a small bowel movement this morning. No acute complaints. Review of Systems Review of Systems: All systems reviewed & are unremarkable except as noted in Subjective Physical Exam Physical Exam: General: NAD, lying in bed, VS as above Resp: normal respiratory effort, lungs clear to auscultation CV: RRR, no murmur, Extremities: Moves all extremities, no edema Results & Data Results & Data Vital Signs (Past 12 Hours) Vital Signs Temp Pulse Resp BP Pulse Ox O2 Del Method 05/06/23 14:51 36.4 C L 70 18 158/85 H 94 Room Air 05/06/23 07:31 36.7 C 58 L 18 163/75 H 95 Room Air PG Care Time/CCT Total # of Minutes Spent Total Time Spent with Patient: Total time spent is greater than 50% in coordination of care (as documented) at patient's floor/unit and/or counseling patient: Coding Level of Care Code 03224 SUB INP/OBS CARE 05/26MIN Diagnoses Diarrhea R19.7 Diarrhea type: unspecified type Elevated troponin I level R79.89 Weakness R53.1 Hypertension I10 (1) Diarrhea Diarrhea type: unspecified type Qualified Code(s): R19.7 - Diarrhea, unspecified
[2023-05-07] MEDS: TRAVOPROST Z 0.004% OPH SOLN 2.5 ML BTL OPB SCH (08:03)
[2023-05-07] MEDS: ASPIRIN 81 MG ECTAB PO SCH (08:03)
[2023-05-07] MEDS: amLODIPine BESYLATE 5 MG TAB PO SCH (08:03)
--- NOTE | 2023-05-07 13:42 | Hospitalist Progress Note ---
Date of Service May 07, 2023 Assessment & Plan (1) Diarrhea: Plan: Diarrhea secondary to Norovirus --> Improved Possible source of weakness, diarrhea leading to dehydration. -BC: NG48hr -Diarrhea improving - last documented 05/02 afternoon -S/p 1L LR, tolerating oral intake no additional IVF needed (2) Elevated troponin I level: Plan: Patient denies chest pain or palpitations. Troponin 64.3 --> 77.4. Some nonspecific changes on EKG. No ST elevation. -Troponin downtreding, peak 77 -Echo: EF 55-60%, no wall motional abnormalities, mild LVH Likely Demand ischemia (3) Weakness: Plan: Electrolytes are largely normal, no obvious source of infection - UA, CXR, respiratory biofire panel NEGATIVE. Likely due to norovirus as above Suspect dehydration contributed as well -PT/OT recommending inpatient rehab (4) Hypertension: Plan: Triamterene-HCTZ listed on last PCP note and discharge summary, however patient reported not taking on med rec. -Blood pressure significantly elevated on admission and given dose of am lodipine, since then pressures have improved. -Patient reports he was taking his home medication, discussed switching to a different medication and does recall any BP meds that he has taken previously -Amlodipine started 05/05 Plan Dispo: continued inpatient stay, medically stable, plan to d/c to [facility] on Tuesday. Peer to Peer completed, pt denied [facility] d/t lack of medical complexity, approved for SNF Admission and Anticipated Discharge Date Admission Date: May 03, 2023 Subjective Patient lying in bed, tired today. No further episodes of diarrhea, feels like his stools are back to baseline. No abdominal pain. Denies any other acute complaints. Review of Systems Review of Systems: All systems reviewed & are unremarkable except as noted in Subjective Physical Exam Physical Exam: General: NAD, lying in bed, VS as above Resp: normal respiratory effort, lungs clear to auscultation CV: RRR, no murmur, Extremities: Moves all extremities, no edema Results & Data Results & Data Vital Signs (Past 12 Hours) Vital Signs Temp Pulse Resp BP Pulse Ox O2 Del Method 05/07/23 07:34 36.4 C L 60 18 153/80 H 95 Room Air PG Care Time/CCT Total # of Minutes Spent Total Time Spent with Patient: Total time spent is greater than 50% in coordination of care (as documented) at patient's floor/unit and/or counseling patient: Coding Level of Care Code 11203 SUB INP/OBS CARE 05/26MIN Diagnoses Diarrhea R19.7 Diarrhea type: unspecified type Elevated troponin I level R79.89 Weakness R53.1 Hypertension I10 (1) Diarrhea Diarrhea type: unspecified type Qualified Code(s): R19.7 - Diarrhea, unspecified
[2023-05-08] MEDS: ASPIRIN 81 MG ECTAB PO SCH (08:14)
[2023-05-08] MEDS: amLODIPine BESYLATE 5 MG TAB PO SCH (08:14)
[2023-05-08] MEDS: TRAVOPROST Z 0.004% OPH SOLN 2.5 ML BTL OPB SCH (08:15)
--- NOTE | 2023-05-08 09:26 | Discharge Summary ---
Discharge Summary Date of Service May 08, 2023 Notes For Next Care Provider Mr. Wilkins was hospitalized after having norovirus,. But discharged to [facility] for further rehabilitation. Stopped his hydrochlorothiazide and started amlodipine for blood pressure control. Would not recommend diuretic given his dehydration which seems to be a recurring issue as multiple episodes of presyncope documented in the past Medication Changes From Visit stop hydrochlorothiazide. started amlodipine Admission HPI Per Admitting Provider Ezekiel Wilkins is a pleasant 77yo male with history of HTN, Asthma and Emphysema presenting with weakness. Family reports that patient has had some degree of progressive functional decline over the last year. He has occasional episodes of weakness. This morning he woke and did not feel well. He felt very weak and fatigued, occasional dizziness. He spent most of the day in bed and had a difficult time standing and ambulating. He also had some watery diarrhea, dark in color. At baseline patient lives with his . He if fairly independent. He denies fever, chills, chest pain, palpitations, cough, SOB. Denies nausea, vomiting. No urinary complaints. No additional complaints at this time. In the ER he is afebrile, HD stable. ER Course: NSS x 500mL Principal Dx & Hospital Course #1 = Principal Diagnosis (1) Diarrhea: Diarrhea secondary to Norovirus --> Improved Possible source of weakness, diarrhea leading to dehydration. -BC: no growth after 5 days -Diarrhea improving - last documented 05/02 afternoon -S/p 1L LR, tolerating oral intake no additional IVF needed (2) Elevated troponin I level: Patient denies chest pain or palpitations. Troponin 64.3 --> 77.4. Some nonspecific changes on EKG. No ST elevation. -Troponin downtreding, peak 77 -Echo: EF 55-60%, no wall motional abnormalities, mild LVH Likely Demand ischemia (3) Weakness: Electrolytes are largely normal, no obvious source of infection - UA, CXR, respiratory biofire panel NEGATIVE. Likely due to norovirus as above Suspect dehydration contributed as well -PT/OT recommending inpatient rehab (4) Hypertension: Triamterene-HCTZ listed on last PCP note and discharge summary, however patient reported not taking on med rec. -Blood pressure significantly elevated on admission and given dose of amlodipine, since then pressures have improved. -Patient reports he was taking his home medication, discussed switching to a different medication and does recall any BP meds that he has taken previously -Amlodipine started 05/05 and has had better blood pressure control since Plan Dispo: [facility] for further rehabilitation, patient was denied [facility] by insurance Discharge Exam General: NAD, sitting at the side of bed, very pleasant, dressed in street close, VS as above Resp: normal respiratory effort, lungs clear to auscultation CV: RRR, no murmur, ABD: Normal bowel sounds, nontender, no guarding, no hepatosplenomegaly Extremities: Moves all extremities, no edema Updated Medication List Medication Instructions Recorded Confirmed Type timolol 0.25 % eye drops 1 drp OPB QAM 07/24/18 04/30/23 History travoprost 0.004 % eye drops 1 drp OPB QAM 07/24/18 04/30/23 History (Travatan Z) acetaminophen 325 mg tablet 650 mg (2 x 325 mg) PO Q4H PRN 05/08/23 Rx Pain 30 days #30 tabs amlodipine 5 mg tablet (Norvasc) 5 mg PO QAM 30 days #30 tabs 05/08/23 Rx aspirin 81 mg tablet,delayed 81 mg PO DAILY 30 days #30 tabs 05/08/23 Rx release Hospital Stay Data Consultations 04/30/23 22:16 ED Decision to Admit Stat Diagnostic Imagining Performed 04/30/23 21:04 CT head/brain wo con Stat Pending Results Patient Have Any Pending Studies at Discharge: No Discharge Instructions Given to Patient (Per Discharging Provider) Mr. Wilkins, Monty were hospitalized after having diarrhea from norovirus causing dehydration and weakness. You diarrhea has now resolved after having IVF fluids. During your stay your blood pressure was elevated after we stopped the hydrochlorothiazide medication. That medication is a diurettic (water pill) which likely made your dehydration worse. Instead, you are now taking amlodipine 5mg daily for blood pressure and has been working well for you. You should follow up on this with your PCP. You also has elevated heart enzymes when you arrived and we did an echocardiogram (ultrasound of the heart) and that did not show any acute abnormalities and your heart enzymes (troponin) improved during your stay. If you have any new or worsening GI symptoms - diarrhea, blood in stool, fevers or chills please contact your PCP. Any chest pain or shortness of breath that is concerning to you please return to the ER. It was our pleasure taking care of you, Leslie Estevez PA-C Total Time Total Time Spent Total Time Spent (In Minutes): over 35 minutes spent in room evaluating and discussing discharge with patient, discussion with nursing staff and case management, chart review and documentation Coding Level of Care Code 97053 INP/OBS DISCH >30 MIN Diagnoses Diarrhea R19.7 Diarrhea type: unspecified type Elevated troponin I level R79.89 Weakness R53.1 Hypertension I10
== END 2023-05-08 11:23 | DRG 392 ==
LOC: EDINP 18:56 → ED 18:56 → SUATTDRO 22:57 → 2N 05-01 20:53 → 3E 05-04 23:16
DX: E86.0 Dehydration; Z87.891 Personal history of nicotine dependence; I10 Essential (primary) hypertension; A08.11 Acute gastroenteropathy due to Norwalk agent; Z96.652 Presence of left artificial knee joint; I44.0 Atrioventricular block, first degree; Z79.82 Long term (current) use of aspirin; J43.9 Emphysema, unspecified; I24.89 Other forms of acute ischemic heart disease; R19.7 Diarrhea, unspecified